=== PATIENT | male | born 1935 | race Caucasian/White ===

== ENCOUNTER 2016-08-24 18:01 | Inpatient (IN) ==
[2016-08-24] MEDS ORDERED: D50W SYRINGE ONE (18:10)
[2016-08-24 18:36] LABS: MANUAL DIFF NEEDED? NO
[2016-08-24 18:49] LABS: INR 1.17; PROTIME 12.4 Seconds (9.2-11.7); PTT 28.9 Seconds (22.0-36.0)
[2016-08-24 18:50] LABS: BASO% 0.1 % (0.0-0.8); EOS# 0.08 X1000 (0.0-0.7); EOS% 0.8 % (0.0-10.0); HEMATOCRIT 28.2 % (42.0-52.0); HEMOGLOBIN 8.9 g/dL (14.0-18.0); IMM GRAN# 0.06 X1000 (0.0-0.04); IMM GRAN% 0.6 % (0.0-0.5); LYMPH# 0.86 X1000 (1.2-3.4); LYMPH% 8.9 % (20.5-51.1); MCH 30.9 PG (27-31); MCHC 31.6 g/dL (33-37); MCV 97.9 FL (81-99); MONO# 0.62 X1000 (0.11-0.59); MONO% 6.4 % (1.7-9.3); MPV 9.4 FL (7.4-10.4); NEUT% 83.2 % (42.2-75.2); PLT 156 X1000 (130-400); RBC 2.88 XMIL (4.7-6.1)
[2016-08-24 19:11] LABS: ALBUMIN 2.5 g/dL (3.5-5.0); POTASSIUM 4.2 mmol/L (3.5-5.1); TOTAL BILIRUBIN 0.57 mg/dL (0.20-1.00); TOTAL PROTEIN 5.9 g/dL (6.3-8.3)
--- NOTE | 2016-08-24 19:12 | Diag Imaging Result Document ---
PROCEDURE NAME: CHEST-2 VIEWS - 08/24/2016 AP AND LATERAL CHEST: There are fibrotic changes in the medial right upper lobe and apical pleural thickening, more so on the right than the left, both of which were present on 03/15/2013 and probably related to previous granulomatous disease. There is atelectasis or fibrosis in the right base which was also present on 08/08/2016 but not on the previous study of 03/15/2013. IMPRESSION: Right lower lobe atelectasis.
[2016-08-24 19:24] LABS: ALLEN TEST YES; BE -3.8 mmoll (-3.0-3.0); BLOOD TYPE ARTERIAL; DRAW SITE R RADIAL; METHB 1.9 % (0.0-1.5); MODALITY CANNULA; O2(CT) 11.6 mL/dL (15.0-23.0); PCO2(98.6) 30 mmHg (35-45); PO2(98.6) 139 mmHg (60-100); SAMPLE BLOOD; SAO2 100.3 % (95.0-100.0); THB 8.3 g/dL (11.5-17.4); pH(98.6) 7.43 (7.35-7.45)
[2016-08-24 19:33] LABS: CALCIUM 6.3 mg/dL (8.8-10.2)
[2016-08-24] MEDS ORDERED: LASIX IV ONE (19:34)
--- NOTE | 2016-08-24 19:35 | Diag Imaging Result Document ---
PROCEDURE NAME: ABDOMEN FLAT/UPRIGHT - 08/24/2016 FLAT AND UPRIGHT ABDOMEN: FINDINGS: There is some small bowel gas as well as gas and stool in the colon. There is a curvilinear rounded density on the right about the level of the iliac crest. This is not the gallbladder as there has apparently been cholecystectomy, but may be represent a cyst in the right kidney as was demonstrated on ultrasonography on 08/03/2016. The dominguez are partially calcified. IMPRESSION: Nonspecific abdomen. Partially calcified right renal cysts.
[2016-08-24 20:04] LABS: URINE SOURCE CLEAN CATCH
[2016-08-24 20:09] LABS: BILIRUBIN URINE NEGATIVE (NEGATIVE); BLOOD URINE NEGATIVE (NEGATIVE); COLOR YELLOW; GLUCOSE URINE NEGATIVE (NEGATIVE); LEUKOCYTES URINE SMALL (NEGATIVE); NITRITE URINE NEGATIVE (NEGATIVE); PROTEIN URINE TRACE mg/dL (NEGATIVE); SP GRAVITY URINE 1.012; TURBIDITY URINE CLEAR (CLEAR); UROBILINOGEN URINE NORMAL (NORMAL)
[2016-08-24 20:10] LABS: URINE MICRO REVIEW NEEDED? YES
[2016-08-24 20:21] LABS: UR EPITHELIAL CELLS <10 /HPF (<10); URINE BACTERIA NEGATIVE /HPF; URINE CULTURE NEEDED? YES; URINE RBC <10 /HPF (<10); URINE WBC <10 /HPF (<10)
[2016-08-24 20:24] LABS: URINE CASTS NONE SEEN; URINE CRYSTALS NONE SEEN; URINE SMALL ROUND CELLS NONE SEEN
[2016-08-24] MEDS ORDERED: SOLU-MEDROL IV ONE (21:57)
[2016-08-24] MEDS ORDERED: ZOFRAN IV PRN (22:15)
[2016-08-24] MEDS ORDERED: XANAX PO PRN (22:15)
[2016-08-24] MEDS: DUONEB (A & A) INH SCH (23:03)
[2016-08-24] MEDS ORDERED: VANCOMYCIN IV PER PHARMACY MISC SCH (23:15)
[2016-08-24 23:49] LABS: HEMOGLOBIN A1C 5.7 % (4.8-6.0)
--- NOTE | 2016-08-24 23:55 | Diag Imaging Result Document ---
PROCEDURE NAME: LUMBAR SPINE 2-VIEWS - 08/24/2016 LUMBAR SPINE AP AND LATERAL: FINDINGS: There is no evidence of acute fracture or subluxation. There is bridging osteophyte formation at T12-L1 and L1-2. The disk spaces are otherwise fairly well maintained. There is dense calcification of the abdominal aorta which does not appear to be distended. IMPRESSION: 1. No evidence of acute bony disease. 2. Degenerative disk disease as described.
[2016-08-25] LABS: URIC ACID 7.6 mg/dL (3.4-7.0)
[2016-08-25] MEDS ORDERED: MAGNESIUM SULFATE 2 GM/S.W.I. 2 GM/50 ML IVPB IV ONE (01:00)
[2016-08-25] MEDS ORDERED: D50W SYRINGE IV PRN (03:00)
[2016-08-25] MEDS ORDERED: D50W SYRINGE ONE (03:34)
[2016-08-25] MEDS: DUONEB (A & A) INH SCH ×5 (03:50→21:10)
[2016-08-25] MEDS: HUMALOG SUBQ SCH ×3 (07:00→16:00)
[2016-08-25] MEDS ORDERED: LASIX IV SCH (09:00)
[2016-08-25] MEDS: PREDNISONE PO SCH (09:25)
[2016-08-25] MEDS: KLOR-CON PO SCH (09:25)
[2016-08-25] MEDS: NORVASC PO SCH (09:25)
[2016-08-25] MEDS: HEPARIN SUBQ SCH ×2 (09:25→23:07)
[2016-08-25] MEDS: FOLIC ACID PO SCH (09:25)
[2016-08-25] MEDS: COREG PO SCH ×2 (09:25→20:45)
[2016-08-25] MEDS: OSCAL 500 + D PO SCH ×3 (09:25→17:11)
--- NOTE | 2016-08-25 10:06 | PROGRESS NOTE ---
DATE: 08/25/2016 SUBJECTIVE: The patient says he is feeling better now. His blood sugar this morning was 109. OBJECTIVE: Please see vital signs in chart. They are stable. HEENT: Normocephalic. EOMs intact. PERRLA. Throat clear. Lungs are clear to auscultation and percussion without rhonchi, rales, or wheezes. Heart: Regular rate and rhythm without murmurs, gallops, or friction rubs. Abdomen soft with active bowel sounds. No organomegaly or tenderness. Neurologic: Cranial nerves 2-12 intact grossly. Sensory and motor intact. Reflexes 1+ all. The patient came in with some respiratory distress and a blood sugar of 33. He seems to be breathing fine now. Blood gases on 28% FiO2 were adequate. He did have a critical value of magnesium of 0.7 and was given Mag sulfate. Calcium has been low even recently before this admission due to his low albumin. ASSESSMENT: 1. Respiratory distress. 2. Hypoglycemia. 3. Diabetes mellitus. 4. Hypomagnesemia. PLAN: Will measure electrolytes again in the morning. We will get a chest x-ray today. Overall, the patient seems to be doing better. cc: Ghassan Morton Jr, MD
--- NOTE | 2016-08-25 10:06 | HISTORY AND PHYSICAL ---
REASON FOR ADMISSION: One-week history of lower extremity weakness and 1-day history of shortness of breath. HISTORY OF PRESENT ILLNESS: Mr. Ramakrishna Dominguez is 81-year-old man with past medical history of chronic kidney disease, hypertension, gout, BPH, type 2 diabetes. The patient comes in today for 1-week history of lower extremity weakness and having a hard time getting out of bed without assistance. Unable to bear weight on his legs. He needed assistance to keep standing. He is currently under the care of hospice. His brings him in because over the last 1 week he has been pretty much bedbound. Except for when he needs to use the bedside commode. However today the patient said he developed sudden shortness of breath without any chest pain. He denies any pain anywhere at all. No dysuria and no abdominal discomfort, no musculoskeletal pain. He complains of PND and orthopnea today. No cough, no fever, no chills. He has chronic lower extremity leg swelling but he says it has not gotten any worse. REVIEW OF SYSTEMS: He denies any back pain. He does have functional incontinence being that he can control his bowels or bladder but he is unable to make it to the bathroom before he has accidents. He also today was brought in because his blood sugars have been running in the 30s the last 3 days and has been little confused. His has given insulin for the last few days and had to stop this and glimepiride. At home his blood sugar was 32 and EMS gave him only 25 g of D50, blood sugar has come to 200. ALLERGIES: Patient is allergic to codeine. MEDICATIONS: He is currently on meclizine 25 mg 4 times a day, Xanax 0.25 mg b.i.d., Coreg 25 mg b.i.d., fluoxetine 20 mg b.i.d. glyburide 6 mg b.i.d., hydrochlorothiazide 12.5 mg q.a.m., Pravachol 80 mg at bedtime, Triplex 135 mg daily, Norvasc 5 mg daily, 25 mg daily, Lasix 40 mg daily, Singulair 10 mg at bedtime, potassium chloride 20 mEq daily, albuterol inhaler q.4 p.r.n., Symbicort 2 puffs b.i.d., folic acid 1 mg daily. FAMILY HISTORY: Reviewed by me. Unchanged per my last H and P done on 2016. SURGICAL HISTORY: Reviewed, unchanged from his last admission a few weeks ago. SOCIAL HISTORY: He is . Does not smoke, drink or use illicit drugs. LAB WORK: Chest film shows atelectasis and some fibrosis but no infiltrate or pulmonary edema. His white count 20,000, hemoglobin and hematocrit is 9 and 28, platelets 456, 000. His glucose on arrival was 64, repeat is now 123 and a calcium of 6.3, albumin 2.5, corrected will be 7.5 corrected calcium. Troponin 0.76, CK 68, PT, PTT is normal. Alcohol level is normal. Urinalysis is unremarkable, pH 7.43, pCO2 30, PO2 39 on 2 L. Abdominal x-ray is nonspecific bowel pattern. Also forgot to mention patient complains of swelling of his 3rd right digit which he thinks is gout. EXAMINATION: General: Chronically ill, pallid elderly man who is alert and oriented to person, place, and time with normal mood and affect. HEENT: Head is normocephalic, atraumatic. Eyes PRADIP, EOMI. He is anicteric and pale. Vital signs: His blood pressure is 169/74, heart rate is 98, respirations 26. He has diffuse tremors of extremities mainly intentional in nature. He also has a some mild myoclonus. ENT was grossly normal exam . He has no signs of sinusitis. Neck: Supple. No JVD or carotid bruit. No thyromegaly. Lungs: Patient has bibasilar crepitations and scattered wheezes in lungs. Air entry decreased in both lung alexander. Cardiovascular: First, 2nd heart sounds heard. No gallops, murmurs, rubs. Rhythm is regular. Abdomen: Protuberant, soft, nontender. No mass, megaly, bowel sounds are hypoactive. Rectal: Deferred at this time. Extremities: The patient has 2+ pitting edema in his lower extremities. Pulses distally in lower extremities are diminished but symmetrical compared to the distal pulses in his upper extremities. Of note patient does have swelling and redness of his 3rd right digit nd is slightly warm to touch and tender somewhat consistent tophaceous gout. Neurological: No focal deficits. Skin: See above, otherwise unremarkable. Musculoskeletal: See above, otherwise normal. ASSESSMENT: 1. Acute dyspnea, could be due to very mild early vascular congestion versus chronic obstructive pulmonary disease versus deconditioning from chronic kidney disease. 2. Chronic kidney disease stage 4. 3. Hypocalcemia probably related to underlying kidney disease. 4. Acute gouty flare up. 5. Hypertensive kidney disease. 6. Type 2 diabetes complicated with hypoglycemia. 7. Hypoglycemia secondary to poor clearance of insulin and sulfonylureas. 8. Essential tremor. 9. Anemia related to chronic kidney disease. 10. Hyperlipidemia. 11. Folic acid deficiency. PLAN: Patient will be admitted and cautiously diuresed, given nebulizer treatments. Primary goal of this is to treat patient symptomatically. The patient is a hospice patient and his prognosis long-term is not particularly good. His weakness could be a combination of the underlying anemia from his chronic kidney disease, the hypocalcemia that he is experiencing. We will correct hypocalcemia with calcium and vitamin D. Patient does have elevated uric acid from the last visit and this of course is gouty flare up. Recommend consider starting him on allopurinol to be determined by Dr. Morton. In the meantime for the acute flare up will be given IV steroids today and continue with moderate doses of prednisone 20 mg daily at the discretion of the physician seeing him tomorrow. The patient does exhibit signs of essential tremor, is already on beta blockers and Xanax, Coumadin may be considered. The patient will discontinue Lantus and glyburide because of patient's hypoglycemia and start him on a very conservative sliding scale. His blood sugar drops less than 100 we will treat her aggressively with D50 as I still believe he probably has circulating levels of insulin secondary to glyburide and Lantus will still persist. Hopefully in the next couple of days patient can be discharged. I do think he may benefit from physical therapy if deemed necessary by Dr. Morton. DVT prophylaxis with heparin. Follow hemoglobin and hematocrit closely to ensure that he does not have any bleeding problems emanating from DVT prophylaxis. [facility]
[2016-08-25] MEDS: SYMBICORT 160/4.5 MICROGM INHALER INH SCH ×2 (10:10→21:10)
--- NOTE | 2016-08-25 15:40 | Diag Imaging Result Document ---
PROCEDURE NAME: CHEST-2 VIEWS - 08/25/2016 TWO VIEWS OF THE CHEST: FINDINGS: There is atelectatic change in both lung bases. The inspiration is suboptimal. There are no previous studies available for comparison at this time. IMPRESSION: Poor inspiration and bibasilar atelectasis.
[2016-08-25 16:30] LABS: ALLEN TEST YES; BE -3.3 mmoll (-3.0-3.0); BLOOD TYPE ARTERIAL; DRAW SITE R RADIAL; METHB 2.2 % (0.0-1.5); O2(CT) 11.2 mL/dL (15.0-23.0); PCO2(98.6) 33 mmHg (35-45); PO2(98.6) 117 mmHg (60-100); SAMPLE BLOOD; SAO2 99.8 % (95.0-100.0); THB 8.1 g/dL (11.5-17.4); pH(98.6) 7.41 (7.35-7.45)
[2016-08-25 18:13] LABS: MODALITY CANNULA
[2016-08-25 18:49] LABS: AGAP 17; BUN 25 mg/dL (8-22); CHLORIDE 105 mmol/L (98-107); COSMO 287; POTASSIUM 4.3 mmol/L (3.5-5.1); SODIUM 141 mmol/L (136-145); TCO2 19 mmol/L (25-35)
[2016-08-25 18:52] LABS: I-STAT IONIZED CALCIUM 0.94 mmoll (1.12-1.32)
[2016-08-25 18:55] LABS: BASO% 0.1 % (0.0-0.8); EOS# 0.01 X1000 (0.0-0.7); EOS% 0.1 % (0.0-10.0); HEMATOCRIT 29.2 % (42.0-52.0); HEMOGLOBIN 9.1 g/dL (14.0-18.0); IMM GRAN# 0.06 X1000 (0.0-0.04); IMM GRAN% 0.7 % (0.0-0.5); LYMPH# 0.71 X1000 (1.2-3.4); LYMPH% 8.2 % (20.5-51.1); MANUAL DIFF NEEDED? YES; MCH 30.3 PG (27-31); MCHC 31.2 g/dL (33-37); MCV 97.3 FL (81-99); MONO# 0.33 X1000 (0.11-0.59); MONO% 3.8 % (1.7-9.3); MPV 9.4 FL (7.4-10.4); NEUT% 87.1 % (42.2-75.2); PLT 152 X1000 (130-400)
[2016-08-25 18:57] LABS: BANDS 13 % (0-1); LYMPHS 14 % (21-51); MONO 5 % (1-9)
[2016-08-25 19:31] LABS: CALCIUM 6.6 mg/dL (8.8-10.2)
[2016-08-25 19:37] LABS: MAGNESIUM 0.7 mg/dL (1.5-2.7)
[2016-08-25] MEDS: PRAVACHOL PO SCH (20:45)
[2016-08-26] MEDS: HUMALOG SUBQ SCH ×6 (00:57→22:21)
[2016-08-26] MEDS: DUONEB (A & A) INH SCH ×4 (03:08→20:00)
[2016-08-26 07:54] LABS: MANUAL DIFF NEEDED? NO
[2016-08-26 08:02] LABS: BASO% 0.1 % (0.0-0.8); EOS# 0.08 X1000 (0.0-0.7); HEMATOCRIT 26.4 % (42.0-52.0); HEMOGLOBIN 8.3 g/dL (14.0-18.0); IMM GRAN# 0.04 X1000 (0.0-0.04); IMM GRAN% 0.5 % (0.0-0.5); LYMPH# 1.29 X1000 (1.2-3.4); LYMPH% 16.9 % (20.5-51.1); MCH 30.5 PG (27-31); MCHC 31.4 g/dL (33-37); MCV 97.1 FL (81-99); MONO# 0.39 X1000 (0.11-0.59); MONO% 5.1 % (1.7-9.3); MPV 9.5 FL (7.4-10.4); NEUT% 76.4 % (42.2-75.2); PLT 150 X1000 (130-400); RBC 2.72 XMIL (4.7-6.1)
[2016-08-26 08:38] LABS: ALBUMIN 2.4 g/dL (3.5-5.0); CALCIUM 6.8 mg/dL (8.8-10.2); MAGNESIUM 0.9 mg/dL (1.5-2.7); POTASSIUM 4.4 mmol/L (3.5-5.1); TOTAL BILIRUBIN 0.45 mg/dL (0.20-1.00); TOTAL PROTEIN 5.8 g/dL (6.3-8.3)
[2016-08-26] MEDS: HEPARIN SUBQ SCH ×2 (09:42→20:52)
[2016-08-26] MEDS: KLOR-CON PO SCH (09:43)
[2016-08-26] MEDS: COREG PO SCH ×2 (09:43→20:53)
[2016-08-26] MEDS: OSCAL 500 + D PO SCH ×3 (09:43→20:53)
[2016-08-26] MEDS: LASIX PO SCH (09:43)
[2016-08-26] MEDS: NORVASC PO SCH (09:43)
[2016-08-26] MEDS: PREDNISONE PO SCH (09:43)
[2016-08-26] MEDS: FOLIC ACID PO SCH (09:43)
[2016-08-26] MEDS ORDERED: MAGNESIUM SULFATE 4 GM/S.W.I. 4 GM/100 ML IVPB IV ONE (09:58)
[2016-08-26] MEDS ORDERED: ALBUMIN 25% IV ONE (09:59)
[2016-08-26 10:52] LABS: IRON SATURATION 38 %; TIBC 160 ug/dL; TOTAL IRON 61 ug/dL (53-167); UNBOUND IRON 99 ug/dL (112-346)
[2016-08-26] MEDS: SYMBICORT 160/4.5 MICROGM INHALER INH SCH ×3 (10:55→21:41)
[2016-08-26 11:29] LABS: FERRITIN 559 ng/mL (30-400)
--- NOTE | 2016-08-26 11:41 | PROGRESS NOTE ---
DATE: 08/26/2016 SUBJECTIVE: The patient says he is feeling a little bit better. OBJECTIVE: Vital Signs: Blood pressure 118/54, respirations 14, pulse 82, temperature 98.5 degrees Fahrenheit. HEENT: Normocephalic. EOMs intact. PERRLA. Throat clear. Lungs: Clear to auscultation and percussion without rhonchi, rales, or wheezes. Heart: Regular rate and rhythm without murmurs, gallops, or friction rubs. Abdomen: Soft with active bowel sounds. No organomegaly or tenderness. Neurological: Intact grossly. ASSESSMENT: 1. Patient came in with some respiratory distress. His proBNP is over 11,000. We will evaluate for congestive heart failure . 2. Adult-onset diabetes mellitus. 3. Hypoglycemia. 4. Hypomagnesium now with magnesium of magnesium of 0.9. 5. Renal failure. 6. Hypoalbuminemia. 7. Hypocalcemia. PLAN: We will consult Cardiology. We will get an echocardiogram. We will try to replace albumin and try to replace magnesium. Please see orders. We will get an echocardiogram. cc: Ghassan Morton Jr, MD
--- NOTE | 2016-08-26 14:46 | Diag Imaging Result Document ---
PROCEDURE NAME: US ABDOMEN-COMPLETE - 08/26/2016 ULTRASOUND ABDOMEN: FINDINGS: The exam is technically limited due to artifacts from the patient's body habitus, inability of the patient to hold his breath during image acquisition, and limited mobility of the patient. There is no discrete liver abnormality identified. The spleen is borderline prominent, measuring approximately 13.5 cm in length by 4.6 cm in diameter. The gallbladder is surgically absent. The common bile duct is normal caliber at 5 mm. There is no ascites seen. The right kidney measures 13.8 x 5 x 8.7 cm in size. The left kidney measures 11.6 x 7.1 x 7.4 cm. There are bilateral renal cysts measuring up to 5.1 cm on the right and 5.2 cm on the left. There is no solid renal mass or hydronephrosis identified. Visualized portions of the pancreas are unremarkable, but the pancreas is partially obscured by bowel gas artifacts. Visualized portions of the abdominal aorta and IVC appear normal caliber, but these are largely obscured by artifacts from bowel gas. IMPRESSION: 1. No visible liver lesion. Borderline splenomegaly. 2. Status post cholecystectomy. Normal caliber common bile duct at 5 mm. No evidence of ascites. 3. Bilateral renal cysts.
--- NOTE | 2016-08-26 15:07 | Diag Imaging Result Document ---
PROCEDURE NAME: CT THORAX W/O CONTRAST - 08/26/2016 CT THORAX WITHOUT CONTRAST: FINDINGS: No contrast administered per request of the referring provider. A dose reduction protocol was used. No comparison CT thorax is available. There is scarring with possible mild bronchiectasis at the suprahilar right upper lobe extending to the apex. There is a small right pleural effusion. There is some dependent atelectasis adjacent to the right pleural effusion in the right lower lobe. There is mild peripheral scarring at the lateral mid and lower left thorax. There is no discrete consolidation identified. There is no pneumothorax seen. There is no discrete pulmonary mass lesion identified. There are a few mildly prominent mediastinal lymph nodes. Included sections of upper abdomen show an approximately 2.5 cm fluid density area at the pancreatic head. There are lesions in the visualized portions of the bilateral kidneys which may represent a combination of simple and complicated cysts. There are some borderline upper abdominal retroperitoneal lymph nodes. IMPRESSION: 1. Scarring with possible mild bronchiectasis at suprahilar right upper lobe/ apex. 2. Small right pleural effusion. No evidence of pneumonia. Borderline mediastinal lymph nodes. 3. Possible 2.5 cm cystic lesion in the head of the pancreas. Scattered borderline upper abdominal retroperitoneal lymph nodes. Bilateral renal lesions which may represent a combination of simple and complicated cysts. [facility]
--- NOTE | 2016-08-26 16:26 | CONSULTATION ---
DATE OF CONSULTATION: 08/26/2016 REQUESTING PHYSICIAN: Dr. Morton REASON FOR CONSULTATION: Evaluation for possible congestive heart failure, swelling, edema, shortness of breath. HISTORY OF PRESENT ILLNESS: Mr. Dominguez is an 81 year old who presented to the hospital for admission on 08/24/2016. At that time, he reported a 1-week history of increasing dyspnea associated with swelling of the lower extremities and profound weakness. He was not able to really get up. At the time of initial encounter, they found a BUN of 24, creatinine 2.5, calcium was low at 6.3, his albumin was 2.5. A troponin was negative. A ProBNP was 11, 617. They also checked a magnesium level, and it was found to be low at 0.7 and subsequently 0.9. An EKG was done in the emergency room. Unfortunately the tracing is lost, and I do not have anything at hand. However, his monitor technician indicated sinus rhythm. A chest x-ray showed possible bilateral atelectasis. There was apical pleural thickening. The patient has been admitted for management. He has been put on Lasix. He was also found to be hypoglycemic, I believe. Initially his sugar was 84; however, there has been some mention at some point that his sugar was 64. He denies having any chest pain or syncope. He admits to a history of vertigo in the past. PAST MEDICAL HISTORY: Positive for hypertension for a number of years. He does have a history of diabetes mellitus type 2 also for a number of years. He has had gout, and presently he is having some discomfort at the level of the ankles. The patient admits to a history of kidney insufficiency. In fact, his estimated glomerular filtration rate at this time is 19 mL per minute, consistent with stage 4 chronic kidney disease. PAST SURGICAL HISTORY: Positive for cholecystectomy in the past. ALLERGIES: Codeine. SOCIAL HISTORY: He is retired since 1992. He has been to his for 35 years. They do not have children. He is not a smoker nor a drinker. HOME MEDICATIONS: At the time of this admission included terbinafine 250 mg daily, potassium chloride 20 mEq daily, pravastatin 80 mg daily, montelukast 10 mg at bedtime, meclizine 25 four times a day, hydrochlorothiazide 12.5 daily, glyburide 6 mg twice a day, furosemide 40 daily, folic acid 1 mg daily, fluoxetine 20 mg twice a day, fenofibrate acid 135 daily , carvedilol 25 twice a day, Symbicort 2 puffs twice a day, amlodipine 5 mg daily, alprazolam 0.25 mg twice a day, albuterol 2 puffs every 4 hours. REVIEW OF SYSTEMS: The patient has been gradually getting weaker. He has also noted progressive swelling of the legs. He has not had any pain of any kind. The patient was recently admitted to the hospital between 08/02/2016 and 08/14/2016. At that time, his discharge diagnoses were possibly for renal failure, acute on chronic, hypotension and anemia. He has also been admitted to the hospital in the past, twice, from 08/27/2013 and 08/28/2013 and then 10/2013 to 09/02/2013 for hyperglycemia and dehydration. His appetite has been poor. He does not sleep very well. PHYSICAL EXAMINATION: Today, blood pressure is 118/54, temperature 98.5, pulse 76, respirations 16. The patient is awake, alert and oriented, in no distress. HEENT is unremarkable. Chest shows diminished breath sounds at the bases. Heart sounds are regular and rhythmic. I do not hear a gallop or murmur. Abdomen is nontender, soft. No masses, no hepatomegaly. Extremities showed 2+ edema. Pulses are palpable. His ankles are tender, they are warm. Neurologic: He has shakiness. He moves all 4 extremities, follows commands. He is awake, alert and oriented x3. IMPRESSION: 1. The patient is presenting with increasing dyspnea and swelling. This may represent congestive heart failure, either systolic or diastolic or a combination of both. 2. History of diabetes mellitus type 2 with edema and low albumin. This may represent nephrotic syndrome secondary to diabetic nephropathy. 3. History of hypertension. 4. Poor functional status. 5. severe hypomagnesemia. 6. Chronic kidney disease stage IV.Calculated GFR given age,weight and creatinine level is 27 ml/min. RECOMMENDATIONS: I would suggest to obtain a number of tests including the echocardiogram that has already been requested. I would suggest to get an ultrasound of the abdomen. I would suggest to get a CT of the chest. I would like to collect 24-hour urine for creatinine clearance and protein. The patient seems to have some gout. We might want to give him some colchicine. The patient also has significant low magnesium. Dr. Morton is going to replace that. Further advice will be forthcoming. I believe we should contact Dr. Woodard since the most likely diagnosis on him is progressive renal insufficiency with a component of nephrotic syndrome. cc: MD Ghassan Bo Jr, MD MTDD
[2016-08-26] MEDS: PRAVACHOL PO SCH (20:53)
[2016-08-27] MEDS: DUONEB (A & A) INH SCH ×5 (02:59→20:01)
--- NOTE | 2016-08-27 05:58 | EKG Report ---
Test Performed on : 08/26/2016 6:05:23 PM Test Reason : AMS Blood Pressure : / mmHG Vent. Rate : 083 BPM Atrial Rate : 083 BPM P-R Int : 188 ms QRS Dur : 086 ms QT Int : 390 ms P-R-T Axes : 061 039 050 degrees QTc Int : 458 ms Normal sinus rhythm. Normal ECG When compared with ECG of 02-AUG-2016 19:21, Artifact is much less ST no longer depressed in Lateral leads Confirmed by Ashlyn CATHERINE, Caesar Liu ([id number]) on 08/29/2016 5:20:39 PM
[2016-08-27] MEDS: HUMALOG SUBQ SCH ×4 (06:06→22:57)
[2016-08-27 07:51] LABS: ALBUMIN 2.7 g/dL (3.5-5.0); CALCIUM 7.7 mg/dL (8.8-10.2); MAGNESIUM 1.7 mg/dL (1.5-2.7); TOTAL BILIRUBIN 0.5 mg/dL (0.20-1.00); TOTAL PROTEIN 5.7 g/dL (6.3-8.3)
[2016-08-27] MEDS ORDERED: ALBUMIN 25% IV ONE (08:41)
[2016-08-27] MEDS ORDERED: EPOGEN SUBQ ONE (09:09)
[2016-08-27] MEDS: HEPARIN SUBQ SCH ×2 (09:24→20:58)
[2016-08-27] MEDS: PREDNISONE PO SCH (09:25)
[2016-08-27] MEDS: COREG PO SCH ×2 (09:25→20:57)
[2016-08-27] MEDS: PROZAC PO SCH ×2 (09:25→20:57)
[2016-08-27] MEDS: FOLIC ACID PO SCH (09:25)
[2016-08-27] MEDS: NORVASC PO SCH (09:26)
[2016-08-27] MEDS: KLOR-CON PO SCH (09:26)
[2016-08-27] MEDS: LASIX PO SCH (09:26)
[2016-08-27] MEDS: OSCAL 500 + D PO SCH ×3 (09:27→16:26)
--- NOTE | 2016-08-27 09:31 | PROGRESS NOTE ---
DATE: 08/27/2016 SUBJECTIVE: The patient is feeling better. OBJECTIVE: Vital signs show a blood pressure of 133/58, respirations 14, pulse 75, temperature 97.9 degrees Fahrenheit. Weight is 218 pounds and 8 ounces. HEENT is normocephalic. EOMs intact. PERRLA. Throat clear. Lungs are clear to auscultation and percussion without rhonchi, rales, or wheezes at this time. Heart has regular rate and rhythm without murmurs, gallops, or friction rubs. Abdomen soft with active bowel sounds. No organomegaly or tenderness. Neurologic exam intact grossly. I appreciate Dr. Herring's input. Urine culture came back showing Enterobacter cloacae but only 60,000-70,000 colony counts. He is having no symptoms with this, but for coverage, I will place him on Macrobid [address] scan of the chest showed bronchiectasis. I will get pulmonary function tests. Ultrasound of the abdomen showed renal cyst that have been there previously and a 2.5 cm cyst in the head of the pancreas. Cysts are usually benign. No solid masses were seen. The patient's anemia seems to be anemia of chronic renal failure. ASSESSMENT: 1. Respiratory distress. 2. Hypoglycemia. 3. Possible congestive heart failure. Echocardiogram pending. 4. Anemia of renal disease. 5. Urinary tract infection. 6. Bronchiectasis. 7. Renal cysts. 8. Cystic lesion in the pancreas. 9. Adult-onset diabetes mellitus. PLAN: We will continue to workup. Please see orders above. We will consult Nephrology. cc: Ghassan Morton Jr, MD
[2016-08-27] MEDS: SYMBICORT 160/4.5 MICROGM INHALER INH SCH ×2 (09:51→20:01)
[2016-08-27] MEDS: MACROBID PO SCH ×2 (10:07→20:57)
--- NOTE | 2016-08-27 12:20 | CONSULTATION ---
DATE OF CONSULTATION: 08/27/2016 REASON FOR CONSULTATION: Chronic kidney disease. HISTORY OF PRESENT ILLNESS: Mr. Dominguez is an 81-year-old white male, who was recently hospitalized here. He was discharged on 08/14/2016 and, at that time, his kidney function was at 3.0. His creatinine was 7.1 when he was admitted to the hospital back on 08/02/2016. the night. He states that he had to come back to the hospital because of nausea and vomiting. He also had some difficulty with breathing. Because of his worsening symptoms, he came to the hospital. No cough, sputum, chills, or fevers. Modest lower extremity swelling that is unchanged from baseline. PAST MEDICAL HISTORY: Diabetes, chronic kidney disease, hypertension, gout, BPH. ALLERGIES: Codeine. HOME MEDICATIONS: Meclizine, Xanax, carvedilol, fluoxetine, glyburide, hydrochlorothiazide, Pravachol, triplex, Norvasc, furosemide, Singulair, potassium chloride, albuterol, Symbicort, folate. SOCIAL HISTORY: He is and lives with his who is in attendance today. No current alcohol or tobacco. FAMILY HISTORY: Noncontributory. PHYSICAL EXAMINATION: Vital Signs: Blood pressure 133/58, heart rate 75, respirations 14, afebrile. Generally, he is an elderly man, sitting at 45 degrees in no acute distress. Skin is warm and dry. Conjunctivae are pink. Pupils are equal. Neck veins are not distended. Trachea is midline. Heart is regular without rubs or gallops. Lungs have equal breath sounds. No crackles or wheezes. Abdomen soft, nontender. Bowel sounds present. No organomegaly or masses or bruits. Extremities have 1+ edema. No clubbing or cyanosis. Neurologic exam is grossly nonfocal. LABORATORY DATA: Sodium 142, potassium 4.0, chloride 105, bicarbonate 22. BUN 37, creatinine 2.6. Hemoglobin 8.3. IMPRESSION: 1. Chronic kidney disease. We will measure his creatinine clearance today to assess whether his symptoms are likely related to his renal failure. 2. Anemia: Iron studies are appropriate. We will dose with erythropoietin. Check stool Hemoccult. 3. Acid-base acceptable. 4. Electrolytes acceptable. cc: MD Ghassan Mims Jr, MD
[2016-08-27] MEDS: TYLENOL PO PRN (13:27)
--- NOTE | 2016-08-27 16:27 | ECHO REPORT ---
ORDER DATE: 08/26/2016 INTERPRETING PHYSICIAN: Dr. Herring REQUESTING PHYSICIAN: CLINICAL INDICATIONS: This is an 81-year-old male with CHF, chronic kidney disease, diabetes. M-MODE MEASUREMENTS: Right ventricle: 3.4 cm. Left ventricle end diastole: 5.5 cm. Left ventricle end systole: 3.4 cm. Posterior wall: 1.0 cm. Interventricular septum: 1.1 cm. Left atrium: 4.1 cm. Aortic root: 3.7 cm. SUMMARY OF 2-DIMENSIONAL IMAGIN. The left ventricular chamber appears to be moderately enlarged. The left ventricular systolic function is normal. Ejection fraction is estimated at 62%. No wall motion abnormality is noted. 2. Right ventricle is mild to moderately enlarged. 3. Tricuspid valve shows a mild degree of regurgitation. 4. The inferior vena cava is not dilated. 5. The pulmonary pressure is estimated at 37 mmHg which is borderline elevated. 6. Left atrium is probably at the upper limits of normal. 7. The pulmonic valve shows mild degree of regurgitation. 8. Aortic valve looks normal. Color flow mapping is unremarkable. There is no stenosis. No regurgitation. 9. Mitral valve looks normal. Color flow mapping indicates mild degree of regurgitation. 10.Pulse wave Doppler of mitral inflow is normal. 11.Tissue Doppler of septal and lateral mitral annulus averages 9 cm. 12.Pulse wave Doppler of pulmonary venous flow is normal. 13.There is no diastolic dysfunction. 14.There is no pericardial effusion, mass or thrombus. CONCLUSIONS: 1. Normal left ventricular systolic function with moderately enlarged left ventricle. 2. Normal diastolic function. 3. Borderline elevation of pulmonary pressure. 4. Very mild degree of mitral and tricuspid regurgitation. COMMENT: This study suggests that the peripheral edema that he has is probably related to some other organ failure besides the heart. This study does not support heart failure as the etiology of this patient's edema. cc: MD Ghassan Bo Jr, MD
[2016-08-27 16:51] LABS: UR CREATININE 35.1 mg/dL (14-26); UR PROTEIN 9.7 mg/dL
[2016-08-27 17:01] LABS: UR CREATININE TOTAL 886.3 mg/24 (800-1800)
[2016-08-27] MEDS: PRAVACHOL PO SCH (20:57)
[2016-08-28] MEDS: DUONEB (A & A) INH SCH ×4 (03:25→19:44)
[2016-08-28] MEDS: HUMALOG SUBQ SCH ×3 (06:28→16:51)
[2016-08-28 07:05] LABS: ALBUMIN 2.8 g/dL (3.5-5.0); CALCIUM 8.3 mg/dL (8.8-10.2); MAGNESIUM 1.5 mg/dL (1.5-2.7); POTASSIUM 4.3 mmol/L (3.5-5.1); TOTAL BILIRUBIN 0.58 mg/dL (0.20-1.00)
[2016-08-28] MEDS: TYLENOL PO PRN (07:32)
[2016-08-28] MEDS: COREG PO SCH ×2 (08:39→21:10)
[2016-08-28] MEDS: KLOR-CON PO SCH (08:39)
[2016-08-28] MEDS: MACROBID PO SCH ×2 (08:39→21:10)
[2016-08-28] MEDS: PREDNISONE PO SCH (08:39)
[2016-08-28] MEDS: OSCAL 500 + D PO SCH ×3 (08:39→17:39)
[2016-08-28] MEDS: FOLIC ACID PO SCH (08:39)
[2016-08-28] MEDS: PROZAC PO SCH ×2 (08:39→21:10)
[2016-08-28] MEDS: LASIX PO SCH (08:39)
[2016-08-28] MEDS: HEPARIN SUBQ SCH ×3 (08:40→21:11)
[2016-08-28] MEDS: NORVASC PO SCH (08:43)
--- NOTE | 2016-08-28 09:30 | PROGRESS NOTE ---
DATE: 08/28/2016 SUBJECTIVE: The patient feels a little bit stronger. He did stand up a little bit by his bedside yesterday but did not walk. We will have physical therapy work with him again today. His breathing is a little better but he is still requiring oxygen. He did have oxygen at home. His echocardiogram was essentially normal. At least it did not show anything which would be consistent with congestive heart failure. OBJECTIVE: Vital Signs: Blood pressure 128/56, respirations 22, pulse 73, temperature 98 degrees Fahrenheit. HEENT: Normocephalic. EOMs intact. PERRLA. Throat clear. Lungs: Clear to auscultation and percussion without rhonchi, rales, or wheezes. Heart: Regular rate and rhythm without murmurs, gallops, or friction rubs. Abdomen: Soft with active bowel sounds. No organomegaly or tenderness. Neurological: Examination intact grossly. The patient does look deconditioned. Laboratory Data: White count 7620, hemoglobin is 8.3, hematocrit 26.4. The patient received some erythropoietin from Dr. Woodard. Note that hemoglobin and hematocrit were done on 08/26/2016. Today's lab did show a slight improvement of creatinine down to 2.4 with a BUN of 37. Electrolytes within normal limits. Calcium is better at 8. Albumin is a little better at 2.8. Creatinine clearance is only 23. ASSESSMENT: 1. Respiratory distress, resolved. 2. Hypoglycemia, resolved. 3. Consideration for congestive heart failure because of an elevated proBNP. Does not seem to indicate that on echocardiogram. Possibly proBNP was elevated just because of the kidney failure. 4. Anemia of renal disease. Have checked for iron levels and we will check stool for blood. 5. Urinary tract infection. 6. Bronchiectasis. 7. Renal cyst. 8. Cystic lesion in the head of the pancreas. 9. Adult onset diabetes mellitus. PLAN: We will see what he can do with physical therapy today, possibly home in the morning if he has increased his strength. cc: Ghassan Morton Jr, MD
--- NOTE | 2016-08-28 09:46 | PROGRESS NOTE ---
DATE: 08/28/2016 CHIEF COMPLAINT: An 81-year-old male with edema, shortness of breath. SUBJECTIVE: Mr. Dominguez is feeling somewhat better today. He is not having any chest pain. Breathing is more comfortable. He has trace edema. His weight today is 221 pounds. The creatinine clearance has been completed. The results indicate that his clearance is 23 mL/min. That places him in chronic kidney disease stage 4. His level of proteinuria is really low. OBJECTIVE: Vital signs: Blood pressure 128/56, temperature 98 degrees, pulse 73, respirations 22. General: He is awake, alert, oriented. He is pale. HEENT: No significant jugular venous distention. Chest: Diffusely diminished breath sounds especially in the right lung field. Cardiac: Heart sounds are regular and rhythmic. I do not hear any gallop or murmur. Abdomen: Nontender. There is no hepatomegaly. Extremities: Showed 1+ edema bilateral. Neurological: He moves 4 extremities. REVIEW OF STUDIES REQUESTED: 1. A CT of the chest without contrast showed scarring with possible mild bronchiectasis at suprahilar right upper lobe apex, small right pleural effusion, a cystic lesion in the head of the pancreas. 2. A 2-D echocardiogram showed excellent left ventricular systolic and diastolic function without any significant valvular abnormality. 3. The EKG done on August 26 showed sinus rhythm with no evidence of any significant ST-T abnormality. BLOOD WORK FROM TODAY: Sodium 142, potassium 4.3, BUN 37, creatinine 2.4 His magnesium had come down to 1.5. His calcium is 8.3. Phosphorus yesterday was 3.3. IMPRESSION: 1. Patient presenting with increasing edema. Based on the results that I have at hand, I do not believe that this is cardiac edema. His ejection fraction is normal. His diastolic function is normal. He does have stage 4 of chronic kidney disease, which I think explains his swelling. 2. He has a history of hypertension. 3. He has very poor functional status. RECOMMENDATION: From a cardiology viewpoint, I do not have any further suggestions. We discussed with Dr. Morton about the findings of positive urine culture. He has put the patient on Macrodantin or nitrofurantoin to cover for Enterobacter cloacae. The patient has been seen already by Dr. Woodard from Nephrology. We will sign off at this time, and please call me if further assistance is needed. The patient does not require any further cardiac testing. cc: MD Ghassan Bo Jr, MD
[2016-08-28] MEDS: SYMBICORT 160/4.5 MICROGM INHALER INH SCH ×2 (10:03→19:45)
[2016-08-28] MEDS ORDERED: CALMOSEPTINE OINTMENT TOP ONE (10:48)
--- NOTE | 2016-08-28 14:46 | PROGRESS NOTE ---
DATE: 08/28/2016 TIME SEEN: 0745 hours. SUBJECTIVE: Mr. Dominguez is resting quietly in bed. Head of the bed is elevated. He is eating his breakfast. He denies chest pain or increased work of breathing. OBJECTIVE: His most recent vital signs: Temperature 98 degrees, blood pressure 128/56, heart rate 73, respirations are 20. He is on 2 L nasal cannula. Last recorded saturation is 100%. He has had 520 in; he has had 675 out per void. LABS: Sodium 142, potassium 4.3, chloride 104, CO2 23, BUN 37, creatinine 2.4, glucose 96. His anion gap is 15. Calcium 8.3, magnesium 1.5, albumin is 2.8. Previous hemoglobin drawn on the second was 8.3. OBJECTIVE: General: On physical exam, this is an 81-year-old elderly white male. He is in no acute distress. Skin: Warm and dry. HEENT: Normocephalic, atraumatic. Conjunctivae pale. He has PRADIP. Mucous membranes moist. Neck: Supple. Trachea midline. Trace JVD. Cardiovascular: Regular rate and rhythm. He is without murmur or gallop. Lungs: Clear to auscultation anteriorly. Equal excursion. Abdomen: Soft, round, nontender. Positive bowel sounds. Genitourinary: Patient has been voiding adequate amount. Not inspected. Extremities: Have 1+ lower extremity edema. No clubbing or cyanosis. Neurological: Alert and oriented x2. ASSESSMENT AND PLAN: 1. Acute kidney injury on chronic kidney disease. Patient has a creatinine clearance from a 24- hour urine of 23%. He has 245 mg total proteinuria. We will continue to monitor his labs. His creatinine remains stable at his historical baseline after improvement. We have discussed with patient that it is okay from our perspective for him to be discharged; we can follow him as an outpatient basis when okayed by his primary care. 2. Electrolytes and acid-base balance. These remain stable. 3. Anemia. This remains low, but stable followed by primary care. No need for intervention at this time. I would like to thank you for allowing us to follow with this patient. Seen, data reviewed, discussed with Michelet Venegas on 08/28/16. I agree with the above assessment and plan of care. rg Dictated by NETTE Lima for Corey Woodard MD cc: NETTE Lima MD Roger H. Moss Jr, MD MTDD
[2016-08-28] MEDS: PRAVACHOL PO SCH (21:10)
[2016-08-29] MEDS: DUONEB (A & A) INH SCH ×2 (03:26→09:33)
[2016-08-29 07:28] LABS: MANUAL DIFF NEEDED? NO
[2016-08-29 07:56] LABS: EOS# 0.04 X1000 (0.0-0.7); EOS% 1.3 % (0.0-10.0); HEMATOCRIT 40.3 % (42.0-52.0); IMM GRAN# 0.05 X1000 (0.0-0.04); IMM GRAN% 1.6 % (0.0-0.5); LYMPH# 0.76 X1000 (1.2-3.4); LYMPH% 24.3 % (20.5-51.1); MCH 31.8 PG (27-31); MCHC 32.3 g/dL (33-37); MCV 98.5 FL (81-99); MONO% 3.2 % (1.7-9.3); NEUT% 68.6 % (42.2-75.2); PLT 93 X1000 (130-400); RBC 4.09 XMIL (4.7-6.1)
[2016-08-29 08:00] LABS: CALCIUM 8.5 mg/dL (8.8-10.2); POTASSIUM 4.4 mmol/L (3.5-5.1); TOTAL BILIRUBIN 0.54 mg/dL (0.20-1.00); TOTAL PROTEIN 5.9 g/dL (6.3-8.3)
[2016-08-29] MEDS: HUMALOG SUBQ SCH (08:16)
--- NOTE | 2016-08-29 08:17 | PROGRESS NOTE ---
DATE: 08/29/2016 SUBJECTIVE: He states he slept well last night. No shortness of breath, nausea, or vomiting. Ready for breakfast. OBJECTIVE: Vital Signs: Blood pressure 149/69, heart rate 70, respirations 20, afebrile. Intake and output are roughly even. Physical Examination: General: No acute distress. Skin: Warm and dry. HEENT: Conjunctivae are pink. Pupils are equal. Neck: Neck veins are not visible. Heart: Regular with a gallop. Lungs: Have equal breath sounds. No crackles or wheezes. Abdomen: Obese and soft. Bowel sounds are present. Nontender. Extremities: Have no edema, clubbing, or cyanosis. Laboratory Data: Pending for today. IMPRESSION: 1. Chronic kidney disease. He is at his historical baseline. From my perspective, it is okay for him to be discharged home. He missed his outpatient appointment with me and will reschedule. 2. Hypertension, acceptable. 3. Volume status, in target. cc: MD Ghassan Mims Jr, MD
[2016-08-29] MEDS ORDERED: SODIUM CHLORIDE 0.9% 10 ML ONE (08:32)
[2016-08-29] MEDS: COREG PO SCH (08:37)
[2016-08-29] MEDS: PROZAC PO SCH (08:37)
[2016-08-29] MEDS: KLOR-CON PO SCH (08:37)
[2016-08-29] MEDS: HEPARIN SUBQ SCH (08:37)
[2016-08-29] MEDS: OSCAL 500 + D PO SCH (08:37)
[2016-08-29] MEDS: MACROBID PO SCH (08:37)
[2016-08-29] MEDS: NORVASC PO SCH (08:38)
[2016-08-29] MEDS: FOLIC ACID PO SCH (08:38)
[2016-08-29] MEDS: LASIX PO SCH (08:38)
[2016-08-29 08:44] VITALS: BP 130/89
[2016-08-29] MEDS: SYMBICORT 160/4.5 MICROGM INHALER INH SCH (09:34)
--- NOTE | 2016-08-29 11:41 | DISCHARGE SUMMARY ---
ADMISSION DATE: 08/24/2016 DISCHARGE DATE: 08/29/2016 FINAL DIAGNOSES: 1. Respiratory distress, now resolved. 2. Chronic kidney disease. 3. Generalized edema. 4. Urinary tract infection. 5. Bronchiectasis. 6. Hypocalcemia. 7. Gouty arthritis. 8. Hypertension. 9. Adult-onset diabetes mellitus. 10. Hypoglycemia. 11. Folic acid deficiency. PLAN: Will discharge patient on home medications but hold his insulin and just take his oral agents for right now. Consultation was made with Cardiology. As he did have a high pro-B-type natriuretic peptide, but the echocardiogram did not show any signs of heart failure. Also consulted Nephrology he will be following-up. The patient has stage 4 chronic kidney disease. His creatinine clearance was 23. HOSPITAL COURSE: The patient had some respiratory is distress at first but this resolved fairly quickly. CT scan does show some bronchiectasis which may be contributing to his shortness of breath. He has oxygen at home. He has not been a smoker in the past. He is having no trouble with his breathing now. He was very anemic and was given some erythropoietin and his hemoglobin gonzález from 8.5 up to 13. PHYSICAL EXAMINATION: General: He is an overweight 81-year-old, white male in no apparent distress. He is still a little weak and was getting some physical therapy, which we will try to continue. HEENT: He is normocephalic. Extraocular movements intact. Pupils equal, round, and reactive to light. Throat clear. Lungs: Clear to auscultation and percussion without rhonchi, rales, or wheezes. Heart: Regular rate rhythm without murmurs, gallops, or friction rubs. Abdomen: Soft. Active bowel sounds. No organomegaly or tenderness. Neurological Examination: Was essentially intact. Will see him back in my office within the next week with a chemistry profile, CBC, and a urinalysis. He will be on Macrobid 100 mg p.o. b.i.d. for another 7 days for his urinary tract infection. cc: Ghassan Morton Jr, MD
== END 2016-08-29 10:27 | disposition home health service (06) ==
LOC: EDUNIT# → EDBD → ED 18:01 → SUATTDRO 22:02 → 3N 22:02
PROVIDERS: ADMIT Emergency Medicine; ATTEND Emergency Medicine

== ENCOUNTER 2019-03-14 15:26 | Inpatient (IN) ==
[2019-03-14 16:52] LABS: BASO# 0.01 X1000 (0.0-0.2); BASO% 0.1 % (0.0-0.8); EOS# 0.02 X1000 (0.0-0.7); EOS% 0.2 % (0.0-10.0); HEMATOCRIT 31.9 % (42.0-52.0); HEMOGLOBIN 10.1 g/dL (14.0-18.0); IMM GRAN# 0.03 X1000 (0.0-0.04); IMM GRAN% 0.3 % (0.0-0.5); LYMPH% 11.4 % (20.5-51.1); MCH 31.8 PG (27-31); MCHC 31.7 g/dL (33-37); MCV 100.3 FL (81-99); MONO% 11.4 % (1.7-9.3); MPV 9.4 FL (7.4-10.4); NEUT# 6.73 X1000 (1.4-6.5); NEUT% 76.6 % (42.2-75.2); PLT 152 X1000 (130-400); RBC 3.18 XMIL (4.7-6.1); RDW 15.2 % (11.5-14.5); WBC 8.79 X1000 (4.8-10.8)
--- NOTE | 2019-03-14 17:12 | Diag Imaging Result Doc PS360 ---
EXAM: CHEST-2 VIEWS HISTORY: cough TECHNIQUE: Chest two views COMPARISON: 10/31/2017 FINDINGS: There are bilateral infiltrates. Tiny right effusion. Mildly prominent heart. No left effusion. IMPRESSION: Bilateral pneumonia Electronically signed by Feliz Hawley 03/14/2019 5:09 PM
[2019-03-14 17:27] LABS: ALB/GLOB RATIO 0.6; ALBUMIN 2.5 g/dL (3.5-5.0); CALCIUM 8.5 mg/dL (8.8-10.2); CREATININE 2.2 mg/dL (0.7-1.2); POTASSIUM 4.5 mmol/L (3.5-5.1); TOTAL BILIRUBIN 1.6 mg/dL (0.20-1.00); TOTAL PROTEIN 6.7 g/dL (6.3-8.3)
[2019-03-14] MEDS ORDERED: ROCEPHIN 1 GM in NS 50 ML IV ONE (17:44)
[2019-03-14] MEDS ORDERED: TYLENOL PO PRN (17:45)
[2019-03-14] MEDS ORDERED: ZOFRAN IV PRN (17:45)
[2019-03-14] MEDS ORDERED: NS 1,000 ML IV ONE (17:45)
--- NOTE | 2019-03-14 17:56 | PROVIDER DOCUMENTATION ---
This chart was entered by Kaley Marx Scribe, acting as scribe for Ang Villeda DO. HPI-General Adult - General Chief Complaint: Cold Symptoms Stated Complaint: COUGH, DIZZY Time Seen by Provider: 03/14/19 15:57 Source: patient, family Allergies/Adverse Reactions: Patient Allergies Allergy/AdvReac Type Severity Reaction Status Date / Time codeine [Codeine] Allergy Mild HIVES Verified 03/14/19 16:30 Home Medications: Home Medication List Medication Instructions Recorded Confirmed Last Taken Type Fluoxetine HCl 20 mg PO BID 04/23/15 03/14/19 07/09/17 History Meclizine HCl [Antivert] 12.5 mg PO 4XDAY PRN 04/23/15 03/14/19 07/09/17 History PRAVAstatin [Pravachol] 80 mg PO QHS 04/23/15 03/14/19 07/09/17 History Furosemide [Lasix] 40 mg PO DAILY 08/02/16 03/14/19 07/09/17 History Potassium Chloride [Klor-Con M20] 20 meq PO DAILY 08/02/16 03/14/19 07/09/17 History Folic Acid 1 mg PO DAILY #30 tablet 08/14/16 03/14/19 07/09/17 Rx Calcium Carbonate [Calcium] 500 mg PO BID 07/08/17 03/14/19 07/09/17 History Insulin Glargine [Lantus] 25 unit SUBQ QHS 07/08/17 03/14/19 07/09/17 22:00 History Omeprazole [Prilosec] 40 mg PO DAILY 07/08/17 03/14/19 07/09/17 History Folic Acid/Vit B Complex and C 1 tab PO DAILY 10/31/17 03/14/19 Unknown History [Dialyvite 800 Tablet] Lidocaine/Prilocaine Cream [Emla 1 dose TOP ORDERED 02/15/19 03/14/19 Unknown History Cream] Primidone 50 mg PO BID 02/15/19 03/14/19 Unknown History Isosorbide Mononitrate E.r. [Imdur] 30 mg PO DAILY #30 tab 02/18/19 03/14/19 Unknown Rx Metoprolol Succinate E.r. [Toprol 25 mg PO DAILY #30 tab 02/18/19 03/14/19 Unknown Rx Xl] Aspirin [Aspir-Low] 81 mg PO DAILY 03/14/19 03/14/19 Unknown History Tamsulosin HCl 0.4 mg PO DAILY 03/14/19 03/14/19 Unknown History Venlafaxine HCl [Effexor Xr] 1 cap PO DAILY 03/14/19 03/14/19 Unknown History - History of Present Illness -Gen Adult Nature of Presenting Problems: 83 yowm presents w/ to er w/cc 2-3 days confusion, and today went to store and came back, found pt on porch, felt feverish, cough and rhinnorhea. pt has hemodyalysis TTS, dialyzed today and sts pt was sleeping and confused for it. [facility] sees pt, called rn today and rn referred pt to er for possible sinus infection. sts pt is normally not confused. pt has a resting tremor. pt was in hosp for 1 wk 2-3wks ago for poss cva. denies abd pain, nvd, and h/a. Location of Pain/Injury: reports: none Pain Radiation: reports: no radiation Quality of Pain: reports: none Severity: reports: mild Onset/Duration: reports: 2 days ago, 3 days ago Timing: reports: still present Context/Activities at Onset: reports: none Modifying Factors: improves with: nothing Associated Symptoms: reports: cough, fever/chills, sinus congestion/drainage Review of Systems - Adult - REVIEW OF SYSTEMS - ADULT Constitutional: reports: see HPI, fever. denies: chills, fatique, night sweats Eyes: reports: no symptoms reported Ears, Nose, Mouth & Throat: reports: see HPI, sinus problem (rhinnorhea). denies: ear discharge, ear pain, epistaxis, throat pain Cardiovascular: reports: no symptoms reported Respiratory: reports: see HPI, cough. denies: dyspnea on exertion, shortness of breath, wheezing Gastrointestinal: reports: no symptoms reported Genitourinary: reports: no symptoms reported Musculoskeletal: reports: no symptoms reported Integumentary: reports: no symptoms reported Neurological: reports: no symptoms reported Psychiatric: reports: see HPI, other (ams, confusion). denies: anxiety, anti-depressant use, insomnia Endocrine: reports: no symptoms reported Hematologic/Lymphatic: reports: no symptoms reported Allergic/Immunologic: reports: no symptoms reported All Other Systems: Reviewed and Negative Past History - Adult - PAST MEDICAL HISTORY-ADULT Review of Records: reports: Old Records Reviewed, Nursing Assessment Review, Medications Reviewed, Social history reviewed & non-contributory. Major Childhood Illnesses: reports: denies history Cardiovascular: reports: HTN, hyperlipidemia Respiratory: reports: denies history Gastrointestinal: reports: denies history Obstetrical/Gynecological: reports: denies history Genitourinary: reports: denies history Musculoskeletal: reports: denies history Neurological: reports: other (vertigo) Psychiatric: reports: anxiety Endocrine/Immune: reports: Diabetes Other Conditions: reports: denies history, cataract/glaucoma - PRIOR SURGERIES/PROCEDURES Surgical/Procedure History: reports: cholecystectomy, orthopedic (extremity), other - IMMUNIZATION STATUS Childhood Immunizations: See Nurse Assessment Flu Vaccine: See Nurse Assessment - FAMILY HISTORY Family History: reviewed, not pertinent - SOCIAL HISTORY Smoking: non-smoker Substance Use: none/never Physical Exam-General - PHYSICAL EXAM-ADULT Initial Vital Signs Reviewed: Yes - CONSTITUTIONAL General Appearance: alert, no apparent distress, slow to respond. negative: cachetic, lethargic - EYES Eyes: PERRL/EOMI, pink conjunctivae - HEAD, EARS, NOSE, MOUTH & THROAT HENMT: normocephalic/atraumatic, normal ENT inspection. negative: moist mucous membranes (dry muc mem) - NECK Neck: non-tender, full range of motion, supple, normal inspection - RESPIRATORY Respiratory: chest non-tender, lungs clear, normal breath sounds - CARDIOVASCULAR Cardiovascular: normal peripheral pulses, regular rate, rhythm - GASTROINTESTINAL (ABDOMEN) Abdominal Exam: normal bowel sounds, non tender, soft - LYMPHATIC Lymphatic: no adenopathy - MUSCULOSKELETAL Back Exam: normal inspection, no CVA tenderness, no vertebral tenderness Extremity: normal range of motion, non-tender, normal inspection Peripheral Pulses: radial (R): 2+, radial (L): 2+ - SKIN Integumentary: normal color, normal turgor, warm/dry - NEUROLOGIC Neurologic: network support technician II-XII nml as tested, grossly normal, no motor/sensory deficits, other (pt has bilat resting arm tremor). negative: facial droop, focal weakness, motor weakness, sensory deficit - PSYCHIATRIC Psych/Mental Status: normal mood/affect, normal thought content, normal thought process, oriented x 3, other (pt is mildly confused but is able to answer questions approprieately). negative: anxious, disheveled, depressed affect Progress - PLAN OF CARE/RESULTS Progress/Plan/Lab Results: Vital Signs - 8 hr 03/14/19 15:37 Temperature 99.2 F Pulse Rate 71 Respiratory Rate 20 Blood Pressure 142/55 O2 Sat by Pulse Oximetry 92 L Result Diagrams: 03/14/19 16:25 03/14/19 16:25 - REASSESSMENT Reassessment #1 Time Reassessed: 17:54 Status: unchanged - XRAY 1 XRAY Study: Chest Impression: Abnormal, See EMR Report ( EXAM: CHEST-2 VIEWS HISTORY: cough TECHNIQUE: Chest two views COMPARISON: 10/31/2017 FINDINGS: There are bilateral infiltrates. Tiny right effusion. Mildly prominent heart. No left effusion. IMPRESSION: Bilateral pneumonia Electronically signed by Feliz Hawley 03/14/2019 5:09 PM) - CONSULTS/PCP/HOSPITALIST Notification #1 *Consult/PCP/Hospitalist*: Dr Mittal Time Discussed: 17:44 Consult Disposition: Admit Departure - Departure Date of Disposition Decision: 03/14/19 Time of Disposition Decision: 17:55 DIAGNOSIS: Pneumonia, ESRD (end stage renal disease) on dialysis Disposition: ADMITTED INPATIENT 09 Certified Medical Emergency: Emergent Condition: Serious Referrals and Follow-Ups: Ghassan Morton Jr, MD [Primary Care Provider] - - Critical Care Note This patient required my direct & personal management of CC.: No Attestation - Physician/ SEBASTIAN Attestation Patient care was provided by Advanced Practice Provider:: No The physician spent face to face time with patient:: Yes Advanced Practice Provider documentation review:: Supervising physician onsite and consulted in the evaluation and care of this patient. The physician did have a face to face encounter with the patient. This chart was documented by the indicated scribe, (Kaley Marx Scribe) and accurately reflects the services I performed and decisions made by , Ang Villeda DO, as attested by the provider's signature.
[2019-03-14] MEDS ORDERED: IMDUR PO SCH (18:00)
[2019-03-14] MEDS ORDERED: TOPROL XL PO SCH (18:00)
[2019-03-14] MEDS ORDERED: ZITHROMAX PO ONE (18:17)
[2019-03-14] MEDS: PRAVACHOL PO SCH (20:16)
[2019-03-14] MEDS: PROTONIX IV SCH (20:17)
[2019-03-14] MEDS: ROCEPHIN 1 GM in NS 50 ML IV SCH (20:17)
[2019-03-14] MEDS: SODIUM CHLORIDE 0.9% INJ SCH (20:17)
[2019-03-14] MEDS: LEVAQUIN 250 MG/D5W 250 MG/50 ML IVPB IV SCH (20:17)
[2019-03-14] MEDS: CALTRATE 600 PO SCH (20:19)
[2019-03-14] MEDS: HUMULIN R SUBQ SCH (20:36)
--- NOTE | 2019-03-14 22:11 | EKG Report ---
Test Performed on : 03/14/2019 10:05:58 PM Test Reason : chest pain Blood Pressure : / mmHG Vent. Rate : 067 BPM Atrial Rate : 067 BPM P-R Int : 166 ms QRS Dur : 086 ms QT Int : 460 ms P-R-T Axes : 041 008 -02 degrees QTc Int : 486 ms Normal sinus rhythm. Prolonged QT Abnormal ECG When compared with ECG of 16-FEB-2019 06:59, T wave inversion now evident in Inferior leads Confirmed by Ginna CATHERINE, Christopher Liu ([id number]) on 03/15/2019 10:52:30 AM
--- NOTE | 2019-03-14 22:49 | HISTORY AND PHYSICAL ---
CHIEF COMPLAINT: Cough, altered mental status. HISTORY OF PRESENT ILLNESS: He is an 83-year-old white male patient of Dr. Morton, recently discharged from the hospital last month for the evaluation of cardiac status. He had a hemodialysis in [place] by Dr. Woodard this afternoon. He was coughing and altered mental status. No significant improvement after dialysis. Brought to the emergency room. Patient was found to have bilateral infiltrates. It looks like bilateral pneumonia. No fever. He did not have any symptoms and signs of heart failure. He is confused. His is at bedside. Normal white cell count. At this time will treat as a community-acquired pneumonia with IV Levaquin 250 mg every other day after dialysis and Rocephin. He does not have living will. He is a full code. Most of the history was obtained from the patient's . PAST MEDICAL HISTORY: 1. End-stage kidney disease on dialysis 3 times a week Saturday, , and Saturday. 2. Depression. 3. Hyperlipidemia. 4. Type 2 diabetes. 5. Acid reflux disease. 6. Essential tremor. 7. BPH. 8. Abnormal stress test on 02/17/2019. PAST SURGICAL HISTORY: Reported bilateral cataract surgery, cholecystectomy and finger surgery for gout, AV graft on the left arm. MEDICATIONS: Prozac 20 mg p.o. b.i.d., meclizine as needed, Pravachol 80 mg daily, Lasix 40 daily, potassium 20 mEq daily, folic acid 1 mg daily, calcium 500 p.o. b.i.d., Lantus 25 units subcutaneous at bedtime, Prilosec 40 daily, folic acid B complex 1 tablet daily, primidone 50 p.o. b.i.d., isosorbide 30 mg daily, metoprolol 25 daily, Effexor 150 daily, aspirin 81 mg daily, Flomax 0.4 daily. ALLERGIES: Reported to codeine. SOCIAL HISTORY: Retired from air conditioning business. Lives in [place] with . No children. No smoking. No alcohol. FAMILY HISTORY: Both parents of natural causes. HEALTH MAINTENANCE: Flu vaccine 2019, pneumococcal vaccine was also given as per the history. Living will is full code. REVIEW OF SYSTEMS: HEENT: Confused, mostly cough and shortness of breath. No chest pain. GI: No nausea, vomiting, abdominal pain. No focal symptoms. He is in diapers. No skin rashes. No fever. PHYSICAL EXAMINATION: Afebrile. Temperature is 98.9 degrees, pulse 73, blood pressure is 115/97, 95% saturation on nasal cannula 2 L. Not in respiratory distress, coughing. Atraumatic, normocephalic. NECK: Supple. No lymphadenopathy. CHEST: Bilateral air entry with crackles mostly on the left upper chest. Distant heart sounds. Belly soft, nontender. He is in diapers. No peripheral edema, cyanosis. No obvious deficits noted. INVESTIGATIONS: CBC. White cell count 8.7, hematocrit 31.9, platelets 152,000. Sodium 141, potassium 4.5, chloride 104, BUN 11, creatinine 2.2, glucose 222, total bilirubin 1.6. Troponin was positive. ProBNP 5066. Chest x-ray reported bilateral infiltrates mostly in the left upper lobe. EKG is pending. ASSESSMENT AND PLAN: 1. An 83-year-old white gentleman brought in with persistent cough, altered mental status with bilateral infiltrates. Treat as pneumonia. Plan is #1. No symptoms and signs of heart failure even the elevated proBNP. #2. Oxygen and continue Levaquin and Rocephin. 2. Type 2 diabetes insulin dependent, sliding scale, will slowly reconcile his insulin. 3. Gastrointestinal prophylaxis with IV Nexium 4. Abnormal nuclear scan, positive troponin. Recently had a stress test. Echocardiogram was done. Good LV function, normal EKG. Will continue on aspirin, beta blockers, isosorbide. 5. End-stage kidney disease. Dr. Woodard consult is due for next hemodialysis on Saturday. 6. Vaccinations were up-to-date. Living will is full code. Discussed the plan of care with the at bedside and will follow up. cc: Yandel Mittal MD
[2019-03-15 04:27] LABS: ALLEN TEST YES; BE 2.6 mmoll (-3.0-3.0); BLOOD TYPE ARTERIAL; HCO3-(ACT) 26.9 mmoll (20.0-26.0); METHB 1.4 % (0.0-1.5); O2(CT) 13.1 mL/dL (15.0-23.0); O2HB 93.9 % (95.0-99.0); PCO2(98.6) 34 mmHg (35-45); PO2(98.6) 72 mmHg (60-100); SAMPLE BLOOD; SAO2 96.9 % (95.0-100.0); THB 9.9 g/dL (11.5-17.4); pH(98.6) 7.49 (7.35-7.45)
[2019-03-15 04:28] LABS: MODALITY CANNULA
[2019-03-15] MEDS: HUMULIN R SUBQ SCH ×4 (06:00→20:08)
[2019-03-15 07:36] LABS: BASO# 0.02 X1000 (0.0-0.2); BASO% 0.2 % (0.0-0.8); EOS# 0.06 X1000 (0.0-0.7); EOS% 0.7 % (0.0-10.0); HEMATOCRIT 30.9 % (42.0-52.0); HEMOGLOBIN 9.5 g/dL (14.0-18.0); IMM GRAN# 0.04 X1000 (0.0-0.04); IMM GRAN% 0.5 % (0.0-0.5); LYMPH# 1.41 X1000 (1.2-3.4); LYMPH% 16.9 % (20.5-51.1); MCH 31.3 PG (27-31); MCHC 30.7 g/dL (33-37); MCV 101.6 FL (81-99); MONO# 0.89 X1000 (0.11-0.59); MONO% 10.7 % (1.7-9.3); MPV 8.9 FL (7.4-10.4); NEUT# 5.93 X1000 (1.4-6.5); PLT 125 X1000 (130-400); RBC 3.04 XMIL (4.7-6.1); RDW 15.4 % (11.5-14.5); WBC 8.35 X1000 (4.8-10.8)
[2019-03-15 08:11] LABS: CALCIUM 9.2 mg/dL (8.8-10.2); POTASSIUM 4.3 mmol/L (3.5-5.1)
[2019-03-15] MEDS: IMDUR PO SCH (09:26)
[2019-03-15] MEDS: EFFEXOR XR PO SCH (09:26)
[2019-03-15] MEDS: TOPROL XL PO SCH (09:26)
[2019-03-15] MEDS: NEPHRO-VITE PO SCH (09:26)
[2019-03-15] MEDS: CALTRATE 600 PO SCH ×2 (09:26→19:59)
[2019-03-15] MEDS: FLOMAX PO SCH (09:26)
[2019-03-15] MEDS: ASPIRIN EC PO SCH (09:26)
--- NOTE | 2019-03-15 10:32 | Diag Imaging Result Doc PS360 ---
EXAM: CHEST-2 VIEWS - 03/15/2019 HISTORY: hypoxia TECHNIQUE: Chest two views COMPARISON: 03/14/2019 FINDINGS: Heart size appears within normal limits and mildly decreased mildly. There has been interval decrease in infiltrate and pleural fluid at the right base. There are right upper lung infiltrate and relatively diffuse left lung infiltrate which appear grossly stable. There is no pneumothorax identified. IMPRESSION: Decrease in infiltrate and pleural fluid at right base. Grossly stable right upper lung and relatively diffuse left lung infiltrates. Electronically signed by Ronald Aguilera 03/15/2019 10:30 AM
--- NOTE | 2019-03-15 12:19 | PROGRESS NOTE ---
DATE: 03/15/2019 SUBJECTIVE: An 84-year-old white male admitted to the hospital with bilateral pneumonia last night. Patient is more alert and less cough. REVIEW OF SYSTEMS: None reported. PHYSICAL EXAMINATION: Vital signs: Temperature is 98.1 degrees, pulse 68, blood pressure is 119/54. HEENT: Within normal limits. Lungs: Crackles on the left upper lobe. Heart: Sounds are distant. Abdomen: Belly is soft, nontender. Neurologic: No obvious deficits. INVESTIGATIONS: White cell count 8.3, hematocrit 30.9, platelets 125,000. ABG showed pH is 7.49, pCO2 34, PO2 72 on 28%. Sodium 140, potassium 4.3, BUN 18, creatinine 3.0, glucose 147. Chest x- ray with dense infiltrate, pleural fluid in the right base and slight improvement. ASSESSMENT AND PLAN: 1. Bilateral pneumonia, left worse than the right side. Continue Levaquin and ceftriaxone and oxygen. 2. End-stage kidney disease. The patient is doing dialysis on Saturday. Consult Dr. Woodard in the morning. 3. Noncritical coronary artery disease. Empirical treatment with aspirin, beta blockers, isosorbide. 4. Discussed the plan of care with family member at bedside, and Dr. Morton is going to follow up. Continue present treatment. LEVEL OF DOCUMENTATION: 25 minutes. cc: Yandel Mittal MD
[2019-03-15] MEDS: PROTONIX IV SCH (19:49)
[2019-03-15] MEDS: SODIUM CHLORIDE 0.9% INJ SCH (19:49)
[2019-03-15] MEDS: ROCEPHIN 1 GM in NS 50 ML IV SCH (19:59)
[2019-03-15] MEDS: LEVAQUIN 250 MG/D5W 250 MG/50 ML IVPB IV SCH (20:03)
[2019-03-15] MEDS: PRAVACHOL PO SCH (20:03)
[2019-03-16] MEDS: HUMULIN R SUBQ SCH ×4 (06:00→21:02)
[2019-03-16 07:37] LABS: BASO# 0.03 X1000 (0.0-0.2); BASO% 0.3 % (0.0-0.8); EOS# 0.06 X1000 (0.0-0.7); EOS% 0.6 % (0.0-10.0); IMM GRAN# 0.04 X1000 (0.0-0.04); IMM GRAN% 0.4 % (0.0-0.5); LYMPH# 1.24 X1000 (1.2-3.4); LYMPH% 13.1 % (20.5-51.1); MCH 30.5 PG (27-31); MCV 101.7 FL (81-99); MONO# 1.05 X1000 (0.11-0.59); MONO% 11.1 % (1.7-9.3); NEUT# 7.03 X1000 (1.4-6.5); NEUT% 74.5 % (42.2-75.2); PLT 116 X1000 (130-400); RBC 2.95 XMIL (4.7-6.1); WBC 9.45 X1000 (4.8-10.8)
[2019-03-16] MEDS ORDERED: ANTIVERT PO PRN (07:48)
[2019-03-16 08:01] LABS: CALCIUM 9.3 mg/dL (8.8-10.2); CREATININE 4.5 mg/dL (0.7-1.2); POTASSIUM 3.8 mmol/L (3.5-5.1)
[2019-03-16] MEDS: IMDUR PO SCH (08:36)
[2019-03-16] MEDS: NEPHRO-VITE PO SCH (08:36)
[2019-03-16] MEDS: TOPROL XL PO SCH (08:36)
[2019-03-16] MEDS: FLOMAX PO SCH (08:36)
[2019-03-16] MEDS: CALTRATE 600 PO SCH ×2 (08:36→21:01)
[2019-03-16] MEDS: ASPIRIN EC PO SCH (08:36)
[2019-03-16] MEDS: EFFEXOR XR PO SCH (08:36)
[2019-03-16] MEDS: MYSOLINE PO SCH ×2 (08:48→21:01)
--- NOTE | 2019-03-16 09:29 | Diag Imaging Result Doc PS360 ---
EXAM: CHEST-2 VIEWS HISTORY: hypoxia TECHNIQUE: Two views COMPARISON: 03/15/2019 FINDINGS: There are dense bilateral infiltrates. Poor inspiratory effort. Tiny pleural effusions. Heart is borderline mildly prominent. IMPRESSION: No interval improvement Electronically signed by Feliz Hawley 03/16/2019 9:27 AM
--- NOTE | 2019-03-16 09:44 | PROGRESS NOTE ---
DATE: 03/16/2019 SUBJECTIVE: The patient says he is feeling a little bit better. He lifted himself up without any difficulty. This morning he says this is the first time he has been able to do that. First one when he first came. LABORATORY: White count 9450, hemoglobin is 9.0. He has chronic anemia. His blood sugar is 167. Creatinine yesterday was 3, BUN 18. He is due for dialysis tomorrow. OBJECTIVE: Vital Signs: Temperature is 98 degrees Fahrenheit. Pulse 73, respirations 18, blood pressure 143/52, oxygen saturation is 95% on 2 L per nasal cannula. HEENT: He is normocephalic. EOMS intact. PERRLA. Throat clear. Lungs: Have a few rales in the bases bilaterally. The chest x-ray shows improvement of the right lower lobe pneumonia. He still has some diffuse left lower lobe pneumonia. Heart: Regular rate and rhythm without murmurs, gallops, friction rubs. Abdomen: Soft. Active bowel sounds. No organomegaly or tenderness. Neurological: Intact grossly. ASSESSMENT: 1. Bilateral pneumonia. 2. Altered mental status now resolved. 3. End-stage renal failure on dialysis. 4. Diabetes mellitus. 5. Tremor. 6. Hypertension. 7. Benign prostatic hypertrophy. 8. Anxiety. 9. Depression. PLAN: Continue care. Will need dialysis. cc: MD Yandel Nazario Jr, MD
[2019-03-16] MEDS: PRAVACHOL PO SCH (21:01)
[2019-03-16] MEDS: ROCEPHIN 1 GM in NS 50 ML IV SCH (21:01)
[2019-03-16] MEDS: PROTONIX IV SCH (21:02)
--- NOTE | 2019-03-16 21:21 | NEPHROLOGY CONSULTATION ---
DATE: 03/16/2019 REASON FOR CONSULTATION: "On dialysis." CONSULTING PHYSICIAN: Dr. Morton. HISTORY OF PRESENT ILLNESS: Mr. Dominguez is an 84-year-old white male, who is on chronic hemodialysis. He came into the hospital because of cough and altered mental state. He receives his routine dialysis in [place] every Saturday, , and Saturday. He describes having a chill at his dialysis treatment that was followed by cough. He currently is feeling better and is eating his breakfast. PAST MEDICAL HISTORY: As above. He also has diabetes, hypertension, hyperlipidemia, essential tremor. HOME MEDICATIONS: Include Prozac, Pravachol, furosemide, potassium, calcium, insulin, Prilosec, folate, primidone, isosorbide, Effexor, metoprolol, Flomax. ALLERGIES: Codeine. SOCIAL HISTORY: and lives with his . No alcohol or tobacco. FAMILY HISTORY: Noncontributory. REVIEW OF SYSTEMS: Noncontributory. PHYSICAL EXAMINATION: Vital Signs: Blood pressure 154/94, heart rate 72, respirations 16, afebrile. General: Chronically ill, elderly man, no acute distress. Skin is warm and dry, thin with bruising. Conjunctivae are pink. Pupils are equal. Oropharynx is clear. Neck veins are not distended. Trachea is midline. Heart is regular, no gallops. Lungs are equal, no crackles. Abdomen is soft, nontender. Bowel sounds present. Extremities: 1+ edema. No clubbing or cyanosis. IMPRESSION: 1. Chronic kidney disease, 5D. He will have his routine hemodialysis treatment tomorrow. 2. Electrolytes/acid-base/blood pressure/volume status all in target. 3. Anemia. Hemoglobin trending down, but he certainly does not meet criteria for treatment at this time. cc: MD Yandel Mims MD
[2019-03-17] MEDS: HUMULIN R SUBQ SCH ×4 (06:14→21:47)
[2019-03-17] MEDS ORDERED: NS 2,000 ML MISC PRN (06:23)
[2019-03-17] MEDS ORDERED: TIGHT: 0.2 ML/HR FOR DIALYSIS MISC PRN (06:23)
[2019-03-17] MEDS ORDERED: HEPARIN IV PRN (06:23)
[2019-03-17 07:06] LABS: BASO# 0.02 X1000 (0.0-0.2); BASO% 0.2 % (0.0-0.8); EOS# 0.08 X1000 (0.0-0.7); EOS% 0.9 % (0.0-10.0); HEMATOCRIT 29.6 % (42.0-52.0); HEMOGLOBIN 9.3 g/dL (14.0-18.0); IMM GRAN# 0.04 X1000 (0.0-0.04); IMM GRAN% 0.5 % (0.0-0.5); LYMPH# 0.93 X1000 (1.2-3.4); LYMPH% 10.7 % (20.5-51.1); MCH 31.4 PG (27-31); MCHC 31.4 g/dL (33-37); MONO# 0.82 X1000 (0.11-0.59); MONO% 9.5 % (1.7-9.3); MPV 9.1 FL (7.4-10.4); NEUT# 6.77 X1000 (1.4-6.5); NEUT% 78.2 % (42.2-75.2); PLT 114 X1000 (130-400); RBC 2.96 XMIL (4.7-6.1); RDW 14.7 % (11.5-14.5); WBC 8.66 X1000 (4.8-10.8)
--- NOTE | 2019-03-17 07:29 | Diag Imaging Result Doc PS360 ---
EXAM: CHEST-PORTABLE INDICATION: pneumonia TECHNIQUE: One view COMPARISON: 03/16/2019 FINDINGS: Extensive bilateral infiltrates are again noted. They have worsened at least slightly during the interval having increased in density. Cardiac silhouette is stable. IMPRESSION: Interval worsening. Electronically signed by Luis Miguel Marx 03/17/2019 7:27 AM
[2019-03-17 07:32] LABS: CALCIUM 9.7 mg/dL (8.8-10.2); POTASSIUM 3.7 mmol/L (3.5-5.1)
[2019-03-17 07:42] LABS: CREATININE 5.3 mg/dL (0.7-1.2)
--- NOTE | 2019-03-17 09:50 | PROGRESS NOTE ---
DATE: 03/17/2019 SUBJECTIVE: The patient says he is feeling better. Chest x-ray shows slight worsening of the infiltrates. He is getting dialysis today. We will see how this does for the fluid in his chest as well. OBJECTIVE: Temperature is 96.9 degrees Fahrenheit, pulse is 69, respirations 20, blood pressure 107/48. HEENT: Normocephalic. EOMs intact. PERRLA. Throat clear. Lungs: Have a few rales anteriorly. No wheezing or rhonchi. Heart: Regular rate and rhythm without murmurs, gallops, or friction rubs. Abdomen: Soft. Active bowel sounds. No organomegaly or tenderness. Neurological: Examination intact grossly. Chest x-ray shows extensive bilateral infiltrates. PLAN: Continue care. Clinically, the patient seems to be doing a little better. cc: MD Yandel Nazario Jr, MD
--- NOTE | 2019-03-17 10:38 | NEPHROLOGY PROGRESS NOTE ---
DATE: 03/17/2019 SUBJECTIVE: He states he feels fine this morning. He denies shortness of breath. States he is eating well. No chills or fevers. OBJECTIVE: Vital Signs: Blood pressure 107/48, heart rate 69, respirations 20, afebrile. General: No acute distress. Chronically ill-appearing. Skin: Warm and dry. Neck: Neck veins are not visible. Heart: Regular with systolic murmur. Lungs: Equal with crackles diffusely. Abdomen: Soft, nontender. Bowel sounds present. Extremities: No edema, clubbing, or cyanosis. IMPRESSION: Chronic kidney disease 5D. He will have his routine hemodialysis today using his outpatient prescription. Electrolytes/acid base in target. His hemoglobin is below target, but stable. No intervention. Blood pressure in target. cc: MD Yandel Mims MD
[2019-03-17] MEDS: CALTRATE 600 PO SCH ×2 (13:05→21:46)
[2019-03-17] MEDS: FLOMAX PO SCH (13:05)
[2019-03-17] MEDS: NEPHRO-VITE PO SCH (13:05)
[2019-03-17] MEDS: EFFEXOR XR PO SCH (13:05)
[2019-03-17] MEDS: IMDUR PO SCH (13:06)
[2019-03-17] MEDS: ASPIRIN EC PO SCH (13:06)
[2019-03-17] MEDS: MYSOLINE PO SCH ×2 (13:06→21:46)
[2019-03-17] MEDS: TOPROL XL PO SCH (13:06)
--- NOTE | 2019-03-17 15:00 | Diag Imaging Result Doc PS360 ---
CHEST-2 VIEWS - 03/17/2019 2:22 PM INDICATION: hypoxia COMPARISON: 5:57 AM FINDINGS: There has been improvement in the basilar infiltrates, mainly at the right lower lobe. Otherwise persistent dense bilateral infiltrates. Heart size remains top normal. No large pleural effusion. IMPRESSION: Small amount of improvement in the aeration of the lung bases. Electronically signed by Carlos Alberto Whelan 03/17/2019 2:58 PM
[2019-03-17] MEDS: ROCEPHIN 1 GM in NS 50 ML IV SCH (20:45)
[2019-03-17] MEDS: PRAVACHOL PO SCH (21:46)
[2019-03-17] MEDS: PROTONIX PO SCH (21:47)
[2019-03-17] MEDS: LEVAQUIN 250 MG/D5W 250 MG/50 ML IVPB IV SCH (21:48)
[2019-03-18] MEDS: HUMULIN R SUBQ SCH ×3 (06:13→16:09)
[2019-03-18 07:27] LABS: BASO# 0.02 X1000 (0.0-0.2); BASO% 0.2 % (0.0-0.8); EOS# 0.03 X1000 (0.0-0.7); EOS% 0.3 % (0.0-10.0); HEMATOCRIT 30.2 % (42.0-52.0); HEMOGLOBIN 9.4 g/dL (14.0-18.0); IMM GRAN# 0.04 X1000 (0.0-0.04); IMM GRAN% 0.4 % (0.0-0.5); LYMPH# 1.02 X1000 (1.2-3.4); MCH 31.1 PG (27-31); MCHC 31.1 g/dL (33-37); MONO% 7.6 % (1.7-9.3); MPV 9.2 FL (7.4-10.4); NEUT# 7.46 X1000 (1.4-6.5); NEUT% 80.5 % (42.2-75.2); PLT 118 X1000 (130-400); RBC 3.02 XMIL (4.7-6.1); RDW 14.8 % (11.5-14.5); WBC 9.27 X1000 (4.8-10.8)
[2019-03-18] MEDS ORDERED: SOLU-MEDROL IV SCH (07:30)
--- NOTE | 2019-03-18 07:35 | Diag Imaging Result Doc PS360 ---
EXAM: CHEST-PORTABLE INDICATION: pneumonia TECHNIQUE: One view COMPARISON: 03/17/2019 FINDINGS: Diffuse bilateral infiltrates appear slightly more dense. This could be due to slight differences in exposure, however. No new consolidation is identified, otherwise. Cardiac silhouette is stable. IMPRESSION: Interval slightly worsened bilateral diffuse infiltrates. Electronically signed by Luis Miguel Marx 03/18/2019 7:33 AM
--- NOTE | 2019-03-18 07:53 | PROGRESS NOTE ---
DATE: 03/18/2019 SUBJECTIVE: The patient says he is feeling a little bit better. He seems to be in no distress. OBJECTIVE: Vital Signs: Temperature 97.8 degrees Fahrenheit, pulse 83 and regular, respirations 18, blood pressure 135/54, and oxygen saturation is ranging from 90 to 94 percent on 2 L per nasal cannula. White count is normal at 9270. Hemoglobin a little low at 9.4. HEENT: Normocephalic. EOMs intact. PERRLA. Throat clear. Lungs: Some rales and wheezes anteriorly. Heart: Regular rate and rhythm without murmurs, gallops, or friction rubs. Abdomen: Soft. Active bowel sounds. No organomegaly or tenderness. Neurological: Intact grossly. DIAGNOSTIC: Chest x-ray done today still shows extensive fluffy bilateral infiltrates consistent with pneumonia. These may look a little bit worse to me today than they did with his previous x- ray. This has not been read by radiology yet. ASSESSMENT: Bilateral pneumonia. PLAN: We will consult Pulmonology since patient seems to be getting worse at least radiographically, and we will treat the bronchospasm. cc: MD Yandel Nazario Jr, MD
[2019-03-18 07:57] LABS: CALCIUM 8.6 mg/dL (8.8-10.2); CREATININE 3.7 mg/dL (0.7-1.2); POTASSIUM 3.4 mmol/L (3.5-5.1)
[2019-03-18] MEDS: EFFEXOR XR PO SCH (09:18)
[2019-03-18] MEDS: FLOMAX PO SCH (09:18)
[2019-03-18] MEDS: ASPIRIN EC PO SCH (09:18)
[2019-03-18] MEDS: MYSOLINE PO SCH ×2 (09:19→20:07)
[2019-03-18] MEDS: CALTRATE 600 PO SCH ×2 (09:19→20:26)
[2019-03-18] MEDS: TOPROL XL PO SCH (09:19)
[2019-03-18] MEDS: NEPHRO-VITE PO SCH (09:19)
[2019-03-18] MEDS: IMDUR PO SCH (09:19)
[2019-03-18] MEDS: PREDNISONE PO SCH (09:19)
[2019-03-18] MEDS ORDERED: CALMOSEPTINE OINTMENT TOP PRN (09:58)
[2019-03-18] MEDS: DUONEB (A & A) INH SCH ×3 (10:30→21:10)
--- NOTE | 2019-03-18 13:25 | NEPHROLOGY PROGRESS NOTE ---
DATE: 03/18/2019 Subjective: patient lying in bed awake talking with roommate. Incoherent at times. Objective: vitals. Temperature 97.9, pulse 65 respirations 18, 40, 02 sat 93% on room air. General: chronically ill appearing white male lying in bed and no acute distress. HEENT: a traumatic, normocephalic. Pupils equal and reactive to light. Trachea midline. Skin: warm dry and intact. Neck: supple, no JVD appreciated. Cardiovascular: S1 S2 regular rate and rhythm with a systolic murmur. Respiratory: crackles diffusely to bilaterally. Abdomen: soft, nontender and nondistended. Bowel sounds present. : not inspected Extremities: chronic Edema noted to bilateral lower extremities Neurological: alert, oriented to person. incoherent speech. Labs: WBC 9.27, hemoglobin 9.4, hematocrit 30.2, platelet count 118, sodium 141, potassium 3.4, chloride 101, carbon dioxide 23, anion gap 17, BUN 30, creatinine 3.7, calcium 8.6. Intake 500, output 1800 per dialysis. Impression: Chronic kidney disease stage 5D. He received his routine hemodialysis yesterday with a 1.8 L output. His peak creatinine was 5.3. Today he has improved to 3.7. His next planned treatment is tomorrow. rg Electrolytes and acid base balance. In target. Anemia. Low but stable. Does not meet transfusion criteria. Blood pressure. In target. Hospital delirium. Stop IV Solu-Medrol and started prednisone 40 mg PO daily. cc: MD Yandel Mims MD [facility]
[2019-03-18] MEDS ORDERED: XANAX PO PRN (17:34)
[2019-03-18] MEDS: ROCEPHIN 1 GM in NS 50 ML IV SCH (20:06)
[2019-03-18] MEDS: PRAVACHOL PO SCH (20:07)
[2019-03-18] MEDS: PROTONIX PO SCH (20:17)
--- NOTE | 2019-03-18 22:07 | PULMONOLOGY CONSULTATION ---
DATE: 03/18/2019 REQUESTING CLINICIAN: Dr. Ghassan Morton. REASON FOR CONSULTATION: Worsening pneumonia. HISTORY OF PRESENT ILLNESS: Mr. Dominguez is an 84-year-old white male with end- stage renal disease, who was admitted to the hospital between 02/15/2019 and 02/18/2019 with fatigue, chest pain, and shortness of breath. No chest x-ray obtained during that hospitalization. The patient returned to the emergency room on 03/14/2019 with confusion, fever, cough, and rhinorrhea. Chest x-ray reveals diffuse bilateral infiltrates. Patient has been initiated on antibiotics, but chest x-ray today reveals worsening infiltrates. The patient makes a very poor historian. He is not sure of his location. He does report some dysphagia. OBJECTIVE: Vital Signs: The patient is afebrile. Blood pressure 102/47, heart rate 71, respiratory rate 21, oxygen saturation 95% on 2 L per nasal cannula. HEENT: Pupils are equal and reactive. Oropharynx appears clear. Neck: Supple. Chest: Reveals scattered rhonchi and wheezing bilaterally. Cardiac: S1, S2. Abdomen: Soft. Extremities: Without edema. LABORATORIES: No microbiology specimens obtained. White blood count 9.27, hemoglobin 9.4, platelet count 118,000. IMPRESSION: An 84-year-old with pneumonia, with radiographic worsening. He is a very poor historian. Given presentation,this is aspiration pneumonia. He has had confusion and, with his age, is at high risk for aspiration. PLAN: 1. Continue current antibiotic regimen. Consider expanding gram-positive coverage with vancomycin if he shows clinical decline. 2. Continue oxygen for hypoxemic respiratory failure. 3. Obtain a modified barium swallow. cc: MD Yandel Barfield MD [facility]
[2019-03-19] MEDS: DUONEB (A & A) INH SCH ×5 (03:40→22:50)
[2019-03-19] MEDS: HUMULIN R SUBQ SCH ×5 (04:43→23:17)
[2019-03-19] MEDS ORDERED: TIGHT: 0.2 ML/HR FOR DIALYSIS MISC PRN (06:16)
[2019-03-19] MEDS ORDERED: NS 2,000 ML MISC PRN (06:16)
[2019-03-19] MEDS ORDERED: HEPARIN IV PRN (06:16)
[2019-03-19 08:03] LABS: BASO# 0.02 X1000 (0.0-0.2); BASO% 0.2 % (0.0-0.8); HEMATOCRIT 27.6 % (42.0-52.0); HEMOGLOBIN 8.8 g/dL (14.0-18.0); IMM GRAN# 0.06 X1000 (0.0-0.04); IMM GRAN% 0.6 % (0.0-0.5); LYMPH# 0.79 X1000 (1.2-3.4); LYMPH% 7.5 % (20.5-51.1); MCH 31.3 PG (27-31); MCHC 31.9 g/dL (33-37); MCV 98.2 FL (81-99); MONO# 0.72 X1000 (0.11-0.59); MONO% 6.9 % (1.7-9.3); MPV 9.5 FL (7.4-10.4); NEUT# 8.89 X1000 (1.4-6.5); NEUT% 84.8 % (42.2-75.2); PLT 113 X1000 (130-400); RBC 2.81 XMIL (4.7-6.1); RDW 14.7 % (11.5-14.5); WBC 10.48 X1000 (4.8-10.8)
--- NOTE | 2019-03-19 08:08 | Diag Imaging Result Doc PS360 ---
CHEST-2 VIEWS - 03/19/2019 INDICATION: pneumonia COMPARISON: 03/18/2019 FINDINGS: No change in the diffuse bilateral mixed infiltrates. Heart size is top normal. There is a trace right pleural effusion. IMPRESSION: No change from prior. Electronically signed by Carlos Alberto Whelan 03/19/2019 8:06 AM
[2019-03-19 08:44] LABS: CALCIUM 9.1 mg/dL (8.8-10.2); POTASSIUM 3.3 mmol/L (3.5-5.1)
[2019-03-19 08:46] LABS: CREATININE 5.1 mg/dL (0.7-1.2)
[2019-03-19] MEDS ORDERED: VANCOMYCIN IV PER PHARMACY MISC SCH (09:15)
[2019-03-19] MEDS ORDERED: VANCOMYCIN 1 GM/NS 1 GM/250 ML IVPB IV ONE ×2 (10:00→17:00)
--- NOTE | 2019-03-19 10:25 | PROGRESS NOTE ---
DATE: 03/19/2019 SUBJECTIVE: The patient is a little bit more confused this morning. Speech is a little bit more slurred. Does not seem to feel quite as well. Chest x-ray today looks about the same as it did yesterday with extensive bilateral infiltrates. I appreciate Dr. Rees coming and seeing the patient. He mentioned that if patient worsened clinically we might consider adding vancomycin. White count has gone up slightly though still in the normal range at 10,480. The patient clinically does not seem to be more short of breath but is a little bit more confused. He had been agitated yesterday and I was called to give him something for the agitation. We put him on some Xanax. This all may be having some effect on him. OBJECTIVE: Vital signs: Blood pressure is 146/39, respirations 18, pulse 80, temperature 97 degrees Fahrenheit. Oxygen saturation has been down to 90% on 2 L per nasal cannula, the last check was 94%. HEENT: Normocephalic. EOMS intact. PERRLA. Throat clear. Lungs: Have scattered rales. Heart: Regular rate and rhythm without murmurs, gallops, or friction rubs. Abdomen: Soft with active bowel sounds. No organomegaly or tenderness. Neurologic Exam: The patient is a little bit more confused, a little bit more slurred speech. This could be due to Xanax. Could not answer my questions about where he was. ASSESSMENT: 1. Bilateral pneumonia. 2. Renal failure. PLAN: Because he seems to decline a little bit clinically even though he is not running more fever, I will go ahead and add vancomycin to his regimen and see if this will help. I appreciate help from Dr. Rees. cc: MD Yandel Nazario Jr, MD
[2019-03-19] MEDS ORDERED: VANCOMYCIN 1 GM/NS 1 GM/250 ML IVPB IV SCH (11:30)
[2019-03-19 16:16] LABS: ALLEN TEST NO; BE 3.9 mmoll (-3.0-3.0); BLOOD TYPE ARTERIAL; METHB 1.1 % (0.0-1.5); O2(CT) 13.7 mL/dL (15.0-23.0); O2HB 96.3 % (95.0-99.0); PCO2(98.6) 37 mmHg (35-45); PO2(98.6) 110 mmHg (60-100); SAMPLE BLOOD; SAO2 98.6 % (95.0-100.0); pH(98.6) 7.48 (7.35-7.45)
[2019-03-19 16:17] LABS: MODALITY BI PAP
[2019-03-19] MEDS ORDERED: ATIVAN IV ONE (16:56)
[2019-03-19] MEDS: ASPIRIN EC PO SCH (17:34)
[2019-03-19] MEDS: CALTRATE 600 PO SCH ×3 (17:35→23:16)
[2019-03-19] MEDS: PREDNISONE PO SCH (17:37)
[2019-03-19] MEDS: TOPROL XL PO SCH (17:37)
[2019-03-19] MEDS: NEPHRO-VITE PO SCH (17:38)
[2019-03-19] MEDS: FLOMAX PO SCH (17:39)
[2019-03-19] MEDS: IMDUR PO SCH (17:41)
[2019-03-19] MEDS: EFFEXOR XR PO SCH (17:41)
[2019-03-19] MEDS: MYSOLINE PO SCH ×2 (17:41→23:17)
--- NOTE | 2019-03-19 19:51 | NEPHROLOGY PROGRESS NOTE ---
DATE: 03/19/2019 Subjective: patient lying in bed awake with incoherent speech to himself, grabbing at his covers and unable to tell me what he is here for. Objective: vitals. Temperature 98.4 pulse 69, respirations 18, blood pressure 126/39, 02 sat 93% on 4L NC. General: chronically ill appearing white male lying in bed and no acute distress. HEENT: a traumatic, normocephalic. Pupils equal and reactive to light. Trachea midline. Mucous membranes dry Skin: warm dry and intact. Neck: supple, 6cm JVD appreciated. Cardiovascular: S1 S2 regular rate and rhythm with a systolic murmur. Respiratory: crackles diffusely to bilateral lobes. Abdomen: soft, nontender and nondistended. Bowel sounds present. : not inspected Extremities: chronic ankle edema noted to bilateral lower extremities Neurological: alert, oriented to person. incoherent speech. Labs: WBC 10.48, hemoglobin 8.8, hematocrit 27.6, platelet count 113, sodium 137, potassium 3.3, chloride 101, carbon dioxide 21, anion gap 15,BUN 43, creatinine 5.1, calcium 9.1, intake 70 output 0 Impression: Chronic kidney disease stage 5D. He will get his routine hemodialysis today. Continue current plan. Electrolytes and acid base balance. In target. Anemia. Low but stable. Does not meet transfusion criteria. Blood pressure. In target. Hospital delirium. Multifactorial, will consult with team. Respiratory failure. I discussed the case with his , brother, Dr. Morton, and Dr. Rees. Started BIPAP. expresses that he has been functionally declining and has felt for some time that he was getting worse. She agrees that vent support and cardiac resuscitation would not meaningfully improve the quality or length of his life and that in any event he would not accept these interventions if he was able to speak for himself. We will not escalate his level of care beyond BIPAP. DNR I. cc: MD Yandel Mims MD [facility]TD[facility]
[2019-03-19] MEDS: ROCEPHIN 1 GM in NS 50 ML IV SCH (20:28)
[2019-03-19] MEDS: LEVAQUIN 250 MG/D5W 250 MG/50 ML IVPB IV SCH (20:28)
[2019-03-19] MEDS: PROTONIX PO SCH (23:17)
[2019-03-19] MEDS: PRAVACHOL PO SCH (23:17)
[2019-03-20] MEDS: DUONEB (A & A) INH SCH ×4 (03:54→22:34)
--- NOTE | 2019-03-20 05:29 | PULMONOLOGY PROGRESS NOTE ---
DATE: 03/19/2019 INTERIM HISTORY: The patient has had ongoing decline over the last 12 to 16 hours. He has become progressively agitated. End of life discussions have been held with the family by Dr. Woodard. Family does not wish to pursue aggressive intervention such as mechanical ventilation or advanced cardiac life support. His resuscitation status has been appropriately addressed. OBJECTIVE: Vital Signs: The patient is agitated. He is afebrile. His oxygen requirements have continued to increase. Blood pressure 107/78, heart rate 86, respiratory rate 24, and oxygen saturation 92 percent. HEENT: Pupils are equal and reactive. Oropharynx appears clear. Neck: Supple. Lungs: Chest reveals diffuse crackles bilaterally. Cardiac: S1-S2. Abdomen: Soft. Extremities: Without edema. LABORATORIES: Arterial blood gas on BiPAP reveals a pH 7.48, pCO2 of 37, and PO2 of 110. Chest x- ray reveals diffuse bilateral infiltrates. IMPRESSION: 1. An 84-year-old with diffuse bilateral pneumonia. 2. End-stage renal disease. 3. Progressive hypoxemic respiratory failure. 4. Progressive cognitive decline. DISCUSSION: An 84-year-old with problems outlined above. He continues to decline. Barium swallow could not be performed due to worsening mental status. His overall prognosis is extremely poor. RECOMMENDATIONS: 1. Continue antibiotic regimen. 2. Continue oxygen and BiPAP for comfort. 3. Continue palliative measures. 4. Prognosis is poor. cc: MD Yandel Barfield MD
[2019-03-20] MEDS: HUMULIN R SUBQ SCH ×4 (06:13→21:12)
[2019-03-20 06:19] LABS: BASO# 0.01 X1000 (0.0-0.2); BASO% 0.1 % (0.0-0.8); EOS# 0.02 X1000 (0.0-0.7); EOS% 0.2 % (0.0-10.0); HEMATOCRIT 30.4 % (42.0-52.0); HEMOGLOBIN 9.3 g/dL (14.0-18.0); IMM GRAN# 0.07 X1000 (0.0-0.04); IMM GRAN% 0.7 % (0.0-0.5); LYMPH# 0.73 X1000 (1.2-3.4); LYMPH% 7.4 % (20.5-51.1); MCH 30.9 PG (27-31); MCHC 30.6 g/dL (33-37); MONO# 0.73 X1000 (0.11-0.59); MONO% 7.4 % (1.7-9.3); MPV 9.3 FL (7.4-10.4); NEUT# 8.27 X1000 (1.4-6.5); NEUT% 84.2 % (42.2-75.2); PLT 96 X1000 (130-400); RBC 3.01 XMIL (4.7-6.1); WBC 9.83 X1000 (4.8-10.8)
--- NOTE | 2019-03-20 06:25 | Diag Imaging Result Doc PS360 ---
EXAM: CHEST-PORTABLE HISTORY: pneumonia TECHNIQUE: Chest single view COMPARISON: 03/19/2019 FINDINGS: There are dense bilateral infiltrates. These are more prominent than on the prior study. Small pleural effusions. IMPRESSION: Interval worsening Electronically signed by Feliz Hawley 03/20/2019 6:23 AM
[2019-03-20 06:37] LABS: CALCIUM 8.6 mg/dL (8.8-10.2); CREATININE 3.4 mg/dL (0.7-1.2); POTASSIUM 4.2 mmol/L (3.5-5.1)
[2019-03-20] MEDS ORDERED: ATIVAN IV PRN (09:17)
[2019-03-20] MEDS: ASPIRIN EC PO SCH (10:01)
[2019-03-20] MEDS: FLOMAX PO SCH (10:02)
[2019-03-20] MEDS: IMDUR PO SCH (10:02)
[2019-03-20] MEDS: CALTRATE 600 PO SCH ×2 (10:02→21:11)
[2019-03-20] MEDS: EFFEXOR XR PO SCH (10:02)
[2019-03-20] MEDS: MYSOLINE PO SCH ×2 (10:02→21:11)
[2019-03-20] MEDS: NEPHRO-VITE PO SCH (10:03)
[2019-03-20] MEDS: PREDNISONE PO SCH (10:03)
[2019-03-20] MEDS: TOPROL XL PO SCH (10:04)
--- NOTE | 2019-03-20 10:16 | PROGRESS NOTE ---
DATE: 03/20/2019 SUBJECTIVE: The patient is not talking at this time. He is shaking a little bit, a little delirious. He is on BiPAP. He has been made a no code level 1. His has been at bedside and we talked for a long time about his condition. He has had pneumonia that has not been very responsive to antibiotics. Chest x-ray today shows small pleural effusions, dense bilateral infiltrates more prominent than on previous study. He is on several antibiotics. He is on dialysis. Both Pulmonology and Nephrology are seeing him. The family has decided not to put him on a ventilator or have advanced cardiac life support. We are going to try to keep him comfortable and see if he does respond to the antibiotics but so far it does not seem like he is responding. We had planned a barium swallow but because of his mental status could not get this done. Blood gas shows a pCO2 of 37, pO2 of 110, and a pH of 7.48. OBJECTIVE: Vital signs: Blood pressure 122/41, respirations 18, pulse 62, temperature 97.6 degrees Fahrenheit. HEENT: He is normocephalic. EOMS intact. PERRLA. Throat clear. Lungs: Have scattered rales and rhonchi. Heart: Regular rate and rhythm without murmurs, gallops, friction rubs. Abdomen: Soft with active bowel sounds. No organomegaly or tenderness. The patient is just not responsive at this time neurologically. ASSESSMENT: 1. Respiratory arrest. 2. End-stage kidney disease. 3. Pneumonia. PLAN: We will try to support, continue IV antibiotics at this time. Prognosis poor. cc: MD Yandel Nazario Jr, MD
[2019-03-20] MEDS ORDERED: MORPHINE IV PRN (11:38)
[2019-03-20] MEDS: MORPHINE IV PRN ×2 (12:27→23:44)
--- NOTE | 2019-03-20 13:29 | NEPHROLOGY PROGRESS NOTE ---
DATE: 03/20/2019 SUBJECTIVE: He is unresponsive on BiPAP. OBJECTIVE: Vital Signs: Blood pressure 122/41, heart rate 62, respirations 18, afebrile. General: Again, poorly responsive. Skin: Warm and dry. Conjunctivae are pink. Neck: Neck veins are not appreciated. Heart: Irregular and tachycardic. Lungs: Equal, without crackles throughout. Abdomen: Benign. Decreased bowel sounds. Extremities: No edema. IMPRESSION: 1. Chronic kidney disease, 5D. His next planned dialysis treatment will be tomorrow. 2. Pneumonia, with respiratory failure. His x-ray and clinical status continue to worsen. I had another conversation with his today. As of now, she would like to continue the BiPAP. Likely terminal. cc: MD Yandel Mims MD
[2019-03-20] MEDS: ATIVAN IV PRN ×2 (14:17→19:54)
[2019-03-20] MEDS: ROCEPHIN 1 GM in NS 50 ML IV SCH (19:53)
[2019-03-20] MEDS ORDERED: ZOSYN 3.375 GM in NS 50 ML IV ONE (19:53)
[2019-03-20] MEDS: PROTONIX PO SCH (21:12)
[2019-03-20] MEDS: PRAVACHOL PO SCH (21:12)
--- NOTE | 2019-03-20 22:26 | PULMONOLOGY PROGRESS NOTE ---
DATE: 03/20/2019 SUBJECTIVE: The patient has been transitioned to a nonrebreather mask. He appears much more comfortable. Swallowing study could not be performed today with poor mental status. OBJECTIVE: Vital Signs: The patient has been afebrile for the last 24 hours. Blood pressure 106/47, heart rate 70, respiratory rate 16, oxygen saturation 100% on nonrebreather mask. HEENT: Pupils are equal and reactive. Oropharynx appears clear but difficult to evaluate. Neck: Supple. Chest: Reveals scattered rhonchi. Cardiac exam: S1, S2. Abdomen: Soft. Extremities: Reveal edema. LABORATORIES: Chest x-ray reveals dense bilateral infiltrates with some worsening from prior exam. IMPRESSION: An 84-year-old with altered mental status, end-stage renal disease, progressive hypoxemic respiratory failure with progressive pulmonary infiltrates. The patient has received good antibiotic coverage during this hospitalization. I will expand gram-negative coverage, but I suspect that this is related to an aspiration pneumonitis, which is primarily chemical. If he clinically improves, then a swallowing study will be performed. PLAN: 1. Broaden antibiotic coverage. 2. Continue oxygen. 3. Continue comfort measures. 4. I agree with Dr. Woodard. He does appear terminal but hopefully will improve. cc: MD Yandel Barfield MD
[2019-03-21] MEDS: ATIVAN IV PRN ×3 (02:14→19:46)
[2019-03-21] MEDS: DUONEB (A & A) INH SCH ×4 (03:41→22:42)
[2019-03-21] MEDS: ZOSYN 2.25 GM in NS 50 ML IV SCH ×3 (04:37→17:52)
[2019-03-21] MEDS: HUMULIN R SUBQ SCH ×4 (06:16→22:51)
--- NOTE | 2019-03-21 07:12 | Diag Imaging Result Doc PS360 ---
EXAM: CHEST-PORTABLE HISTORY: pneumonia TECHNIQUE: Single view COMPARISON: 03/20/2019 FINDINGS: Poor inspiratory effort. There are dense bilateral infiltrates. These are more pronounced than on the prior study. There are small pleural effusions. IMPRESSION: Interval worsening. Electronically signed by Feliz Hawley 03/21/2019 7:09 AM
[2019-03-21 07:27] LABS: BASO# 0.02 X1000 (0.0-0.2); BASO% 0.2 % (0.0-0.8); EOS% 2.8 % (0.0-10.0); HEMATOCRIT 30.6 % (42.0-52.0); HEMOGLOBIN 9.2 g/dL (14.0-18.0); IMM GRAN# 0.11 X1000 (0.0-0.04); LYMPH# 0.91 X1000 (1.2-3.4); LYMPH% 8.6 % (20.5-51.1); MCH 30.7 PG (27-31); MCHC 30.1 g/dL (33-37); MONO# 0.68 X1000 (0.11-0.59); MONO% 6.4 % (1.7-9.3); MPV 9.5 FL (7.4-10.4); NEUT# 8.57 X1000 (1.4-6.5); PLT 89 X1000 (130-400); RDW 15.1 % (11.5-14.5); WBC 10.59 X1000 (4.8-10.8)
[2019-03-21 08:04] LABS: CALCIUM 8.4 mg/dL (8.8-10.2); CREATININE 4.7 mg/dL (0.7-1.2); POTASSIUM 4.3 mmol/L (3.5-5.1)
[2019-03-21] MEDS: PREDNISONE PO SCH (08:17)
[2019-03-21] MEDS: ASPIRIN EC PO SCH (08:17)
[2019-03-21] MEDS: TOPROL XL PO SCH (08:17)
[2019-03-21] MEDS: IMDUR PO SCH (08:18)
[2019-03-21] MEDS: EFFEXOR XR PO SCH (08:18)
[2019-03-21] MEDS: NEPHRO-VITE PO SCH (08:18)
[2019-03-21] MEDS: MYSOLINE PO SCH ×2 (08:18→22:52)
[2019-03-21] MEDS: CALTRATE 600 PO SCH ×2 (08:18→22:51)
[2019-03-21] MEDS: FLOMAX PO SCH (08:19)
[2019-03-21] MEDS ORDERED: NS 2,000 ML MISC PRN (10:43)
[2019-03-21] MEDS ORDERED: TIGHT: 0.2 ML/HR FOR DIALYSIS MISC PRN (10:43)
--- NOTE | 2019-03-21 12:02 | NEPHROLOGY PROGRESS NOTE ---
DATE: 03/21/2019 SUBJECTIVE: He is on 100% closed face mask. He is much more comfortable than he apparently was with the BiPAP. Otherwise, no new complaints and he has not eaten or drunk anything. OBJECTIVE: Vital Signs: Blood pressure 124/62, heart rate 74, respirations 20, and afebrile. No acute distress. Skin: Warm and dry. Heart: Regular. Lungs: Equal with crackles. Shallow. Abdomen: Benign. Extremities: Minimal edema. IMPRESSION: Chronic kidney disease 5D. He will have his routine hemodialysis today. Limited ultrafiltration based on his blood pressure. Electrolytes/acid base in target. Hemoglobin is below target but stable. Continue current antibiotics. cc: MD Yandel Mims MD
--- NOTE | 2019-03-21 13:05 | PROGRESS NOTE ---
DATE: 03/21/2019 SUBJECTIVE: The patient is not talking at this time. He does arouse but will not communicate. OBJECTIVE: Chest x-ray shows interval worsening of the bilateral infiltrates. Vital Signs: Blood pressure is 124/62, respirations 12, pulse 74, and temperature 97.4 degrees Fahrenheit. HEENT: Normocephalic. EOMs intact. PERRLA. Throat is clear. Respiratory: Lungs have scattered rales. Heart: Regular rate and rhythm. Abdomen: Soft. Active bowel sounds. Neurological: The patient is awake but not responsive. ASSESSMENT: 1. Worsening pneumonia. 2. Renal failure on dialysis. Dr. Woodard wants to continue with dialysis at this point. Laboratory work shows a white count of 10,590 and creatinine of 4.7. PLAN: Continue care. cc: MD Yandel Nazario Jr, MD
[2019-03-21] MEDS: MORPHINE IV PRN ×3 (13:18→23:13)
[2019-03-21] MEDS ORDERED: VANCOMYCIN 1 GM/NS 1 GM/250 ML IVPB IV ONE (17:00)
--- NOTE | 2019-03-21 18:29 | PULMONOLOGY PROGRESS NOTE ---
DATE: 03/21/2019 SUBJECTIVE: The patient remains obtunded and agitated. He appears to be comfortable but fidgety on non-rebreather. OBJECTIVE: Vital Signs: Blood pressure 128/32, heart rate 80, respiratory rate 15, oxygen saturation 92%. HEENT: Pupils are equal and reactive. Oropharynx appears clear. Neck: Supple. Chest: Reveals coarse rhonchi bilaterally. Cardiac exam: S1-S2. Abdomen: Soft. Extremities: Without edema. LABORATORIES: Chest x-ray reveals diffuse bilateral infiltrates without improvement. IMPRESSION: An 84-year-old with: 1. Diffuse bilateral pneumonia. 2. Hypoxemic respiratory failure. 3. End-stage renal disease. 4. Encephalopathy. PLAN: 1. Continue current antibiotic regimen. 2. Continue oxygen modality. 3. Continue comfort measures. 4. Consider swallowing study if he has clinical improvement, although currently he appears terminal. cc: MD Yandel Barfield MD
[2019-03-21] MEDS: LEVAQUIN 250 MG/D5W 250 MG/50 ML IVPB IV SCH (19:51)
[2019-03-21] MEDS: PRAVACHOL PO SCH (22:52)
[2019-03-21] MEDS: PROTONIX PO SCH (22:52)
[2019-03-22] MEDS: ZOSYN 2.25 GM in NS 50 ML IV SCH ×5 (00:10→23:04)
[2019-03-22] MEDS: DUONEB (A & A) INH SCH ×4 (03:20→21:13)
[2019-03-22] MEDS: HUMULIN R SUBQ SCH ×3 (06:13→17:39)
[2019-03-22 06:16] LABS: BASO# 0.02 X1000 (0.0-0.2); BASO% 0.2 % (0.0-0.8); HEMATOCRIT 30.5 % (42.0-52.0); HEMOGLOBIN 9.2 g/dL (14.0-18.0); IMM GRAN# 0.08 X1000 (0.0-0.04); IMM GRAN% 0.8 % (0.0-0.5); LYMPH# 0.85 X1000 (1.2-3.4); LYMPH% 8.3 % (20.5-51.1); MCH 30.8 PG (27-31); MCHC 30.2 g/dL (33-37); MONO# 0.72 X1000 (0.11-0.59); MONO% 7.1 % (1.7-9.3); MPV 9.7 FL (7.4-10.4); NEUT# 8.44 X1000 (1.4-6.5); NEUT% 82.6 % (42.2-75.2); PLT 74 X1000 (130-400); RBC 2.99 XMIL (4.7-6.1); RDW 15.1 % (11.5-14.5); WBC 10.21 X1000 (4.8-10.8)
[2019-03-22 06:29] LABS: CALCIUM 8.5 mg/dL (8.8-10.2); CREATININE 3.4 mg/dL (0.7-1.2); POTASSIUM 4.2 mmol/L (3.5-5.1)
[2019-03-22] MEDS: ASPIRIN EC PO SCH (08:39)
[2019-03-22] MEDS: CALTRATE 600 PO SCH (08:39)
[2019-03-22] MEDS: EFFEXOR XR PO SCH (08:40)
[2019-03-22] MEDS: TOPROL XL PO SCH (08:40)
[2019-03-22] MEDS: FLOMAX PO SCH (08:40)
[2019-03-22] MEDS: NEPHRO-VITE PO SCH (08:40)
[2019-03-22] MEDS: IMDUR PO SCH (08:40)
[2019-03-22] MEDS: PREDNISONE PO SCH (08:41)
[2019-03-22] MEDS: MYSOLINE PO SCH (08:41)
[2019-03-22] MEDS: MORPHINE IV PRN ×2 (11:45→17:48)
--- NOTE | 2019-03-22 13:37 | PROGRESS NOTE ---
DATE: 03/22/2019 SUBJECTIVE: The patient wakes up occasionally but is not otherwise responsive. is by bedside and several other either family members or friends. OBJECTIVE: Blood pressure is 111/40, respirations 12, pulse 82, temperature 97.6 degrees Fahrenheit. Oxygen saturation was 100% on oxygen.HEENT: He is normocephalic. Neck: Supple. Lungs: Have rales anteriorly. Heart: Regular rate and rhythm without murmurs, gallops, friction rubs. Abdomen: Soft. Active bowel sounds. No organomegaly or tenderness. Neurological: The patient is lethargic. LABORATORY: White count is down a little bit 10,210, hemoglobin 9.2, hematocrit 30.7. Creatinine is 3.4, electrolytes essentially normal. ASSESSMENT: 1. Pneumonia. 2. Hypoxia. 3. End-stage renal disease. PLAN: Continue support. cc: MD Yandel Nazario Jr, MD
--- NOTE | 2019-03-22 19:01 | PULMONOLOGY PROGRESS NOTE ---
DATE: 03/22/2019 SUBJECTIVE: The patient is somnolent. His reports he has been resting well. OBJECTIVE: Vital Signs: The patient has been afebrile for the 24 hours. Blood pressure 111/40, heart rate 76, respiratory rate 16, oxygen saturation 100% on non-rebreather. HEENT: Pupils are equal, reactive. Oropharynx is clear. Neck: Supple. Chest: Wet rhonchi bilaterally. Cardiac: S1, S2 . Abdomen: Soft. Extremities: Without edema. LABORATORIES: White blood count 10.21, hemoglobin 9.2, platelet count 74,000, sodium 144, potassium 4.2, chloride 104, bicarbonate 26, BUN 27, creatinine 3.4. IMPRESSION: 84-year-old with 1. Diffuse pneumonia. 2. Hypoxemic respiratory failure. 3. End-stage renal disease. 4. Encephalopathy. PLAN: 1. Continue comfort measures . 2. Continue oxygen therapy. 3. Continue current antibiotic regimen. 4. Followup chest x-ray tomorrow. If he shows radiographic improvement will consider repeating swallowing study. cc: MD Yandel Barfield MD
[2019-03-23] MEDS: ATIVAN IV PRN ×3 (00:24→17:27)
[2019-03-23] MEDS: MYSOLINE PO SCH ×3 (00:26→22:26)
[2019-03-23] MEDS: PRAVACHOL PO SCH ×2 (00:26→22:24)
[2019-03-23] MEDS: HUMULIN R SUBQ SCH ×5 (00:26→22:25)
[2019-03-23] MEDS: PROTONIX PO SCH ×2 (00:27→22:25)
[2019-03-23] MEDS: CALTRATE 600 PO SCH ×3 (00:27→22:24)
[2019-03-23] MEDS: DUONEB (A & A) INH SCH ×4 (03:25→23:04)
[2019-03-23] MEDS: ZOSYN 2.25 GM in NS 50 ML IV SCH ×3 (05:43→19:59)
[2019-03-23 06:00] LABS: BASO# 0.04 X1000 (0.0-0.2); BASO% 0.3 % (0.0-0.8); EOS# 0.37 X1000 (0.0-0.7); EOS% 3.1 % (0.0-10.0); HEMATOCRIT 30.6 % (42.0-52.0); HEMOGLOBIN 9.3 g/dL (14.0-18.0); IMM GRAN# 0.14 X1000 (0.0-0.04); IMM GRAN% 1.2 % (0.0-0.5); LYMPH# 1.01 X1000 (1.2-3.4); LYMPH% 8.6 % (20.5-51.1); MCH 31.1 PG (27-31); MCHC 30.4 g/dL (33-37); MCV 102.3 FL (81-99); MONO# 0.75 X1000 (0.11-0.59); MONO% 6.4 % (1.7-9.3); MPV 9.5 FL (7.4-10.4); NEUT# 9.44 X1000 (1.4-6.5); NEUT% 80.4 % (42.2-75.2); PLT 54 X1000 (130-400); RBC 2.99 XMIL (4.7-6.1); RDW 15.3 % (11.5-14.5); WBC 11.75 X1000 (4.8-10.8)
[2019-03-23 06:31] LABS: CALCIUM 8.1 mg/dL (8.8-10.2); CREATININE 4.6 mg/dL (0.7-1.2); POTASSIUM 4.2 mmol/L (3.5-5.1)
--- NOTE | 2019-03-23 07:04 | Diag Imaging Result Doc PS360 ---
CHEST-PORTABLE - 03/23/2019 INDICATION: pneumonia COMPARISON: 03/21/2019 FINDINGS: There is slight worsening in the dense bilateral infiltrates/opacities. There is a stable small right pleural effusion. IMPRESSION: Worsening in the extensive bilateral infiltrates/opacities. Electronically signed by Carlos Alberto Whelan 03/23/2019 7:02 AM
[2019-03-23] MEDS ORDERED: NS 500 ML IV ONE ×2 (07:41→11:12)
--- NOTE | 2019-03-23 09:38 | NEPHROLOGY PROGRESS NOTE ---
DATE: 03/23/2019 Subjective: patient lying in bed with at bedside. He will withdraw his bilateral upper extremities to tactile stimuli, but will not open his eyes or speak. Objective: vitals. Temperature 98.5, pulse 88, respirations 20, blood pressure 123/39, O2 sat 98% on 100% nonrebreather. General: chronically ill appearing white male lying in bed and no acute distress. HEENT: a traumatic, normocephalic. Pupils equal and reactive to light. Trachea midline. Mucous membranes dry Skin: warm dry and intact. Neck: supple, no JVD Cardiovascular: S1 S2 regular rate and rhythm, no murmurs or gallops. Respiratory: crackles diffusely to bilateral lobes. Abdomen: soft, nontender and nondistended.Hypoactive bowel sounds. : not inspected Extremities: no clubbing, cyanosis, or edema. Neurological: somnolent, not able to open his eyes or follow commands Labs: WBC 11.75, hemoglobin 9.3, hematocrit 30.6, platelet count 54, sodium 141, potassium 4.2, chloride 102, carbon dioxide 24, anion gap 15, BUN 43, creatinine 4.6, calcium 8.1. Intake 100, output zero. Impression: Chronic kidney disease stage 5D. Will receive his routine dialysis tomorrow, continue current treatment. Electrolytes and acid base balance. In target. Anemia. Low but stable. Does not meet transfusion criteria. Blood pressure. Below target. We will give NS 500ml bolus x 2 as needed. cc: MD Yandel Mims MD MTDD
--- NOTE | 2019-03-23 09:40 | PROGRESS NOTE ---
DATE: 03/23/2019 SUBJECTIVE: The patient is not very responsive. He will open his eyes, but he will not talk. His is sitting by the bedside. OBJECTIVE: Vital Signs: Blood pressures dropped from 123/39 earlier today to 77/17, temperature is 98.5 degrees Fahrenheit. HEENT: Normocephalic. Lungs: Scattered rales and rhonchi. Heart: Regular rate and rhythm. No murmurs, gallops, friction rubs. Abdomen: Soft. Active bowel sounds. No organomegaly or tenderness. IMAGING AND LABORATORY DATA: White count is up to 11,750, hemoglobin 9.3. Creatinine is 4.6, BUN 43. My understanding is that Dr. Woodard has ordered some IV fluids on him. I think he is a little dry and dehydrated. He is on vancomycin and Zosyn. Chest x-ray shows worsening of the bilateral pneumonia. ASSESSMENT: 1. Pneumonia, not responding. 2. Renal failure. PLAN: Continue comfort measures and antibiotics. The patient now has hypotension. If that continues, he may be terminal. cc: MD Yandel Nazario Jr, MD
[2019-03-23] MEDS: ASPIRIN EC PO SCH (09:42)
[2019-03-23] MEDS: EFFEXOR XR PO SCH (09:43)
[2019-03-23] MEDS: FLOMAX PO SCH (09:44)
[2019-03-23] MEDS: IMDUR PO SCH (09:44)
[2019-03-23] MEDS: TOPROL XL PO SCH (09:45)
[2019-03-23] MEDS: NEPHRO-VITE PO SCH (09:45)
[2019-03-23] MEDS: PREDNISONE PO SCH (09:45)
[2019-03-23] MEDS: LEVAQUIN 250 MG/D5W 250 MG/50 ML IVPB IV SCH (21:18)
--- NOTE | 2019-03-23 22:57 | PULMONOLOGY PROGRESS NOTE ---
DATE: 03/23/2019 SUBJECTIVE: The patient is obtunded with periodic agitation. He has no increased work of breathing. OBJECTIVE: Vital Signs: Blood pressure 92/58, heart rate 89, respiratory rate 16, oxygen saturation 99% on non-rebreather. HEENT: Pupils are equal. Oropharynx appears clear. Neck: Supple. Chest: Reveals faint crackles bilaterally. Cardiac exam: S1, S2. Abdomen: Soft. Extremities: Without edema. LABORATORIES: Chest x-ray reveals diffuse bilateral infiltrates without improvement. White blood count 11.8, hemoglobin 9.3, platelet count 54,000. IMPRESSION: An 84-year-old with: 1. Diffuse bilateral pneumonia. 2. Hypoxemic respiratory failure. 3. Encephalopathy. 4. End-stage renal disease on hemodialysis. He has had no clinical improvement or radiographic improvement over the last week. PLAN: 1. Continue comfort measures. 2. Continue antibiotic regimen. 3. Continue oxygen for hypoxemic respiratory failure. 4. End of life discussions have been held with the family. He does not appear to be clinically improving. cc: MD Yandel Barfield MD
[2019-03-24] MEDS: ZOSYN 2.25 GM in NS 50 ML IV SCH ×2 (00:35→06:47)
[2019-03-24] MEDS: DUONEB (A & A) INH SCH ×4 (06:21→21:53)
[2019-03-24] MEDS: HUMULIN R SUBQ SCH (06:41)
--- NOTE | 2019-03-24 09:44 | PROGRESS NOTE ---
DATE: 03/24/2019 SUBJECTIVE: The patient is not responsive. and brother at the bedside. has already decided not to do any more dialysis. I had a long talk with her about just doing comfort measures and she agrees. She wants his antibiotics stopped; will stop his IV fluids. Give him a saline lock, and give him pain medication as needed to make him comfortable. OBJECTIVE: Vital Signs: Blood pressure is 109/31, respirations 18, pulse 88, temperature 97.4 degrees Fahrenheit. HEENT: Normocephalic. EOMS intact. PERRLA. Throat clear. Lungs: Have coarse rhonchi and rales scattered throughout. Heart: Regular rate and rhythm without murmurs, gallops, friction rubs. Abdomen: Soft. Active bowel sounds. No organomegaly or tenderness. Neurological exam: The patient is not responsive at this time. ASSESSMENT: 1. Refractory pneumonia. 2. Renal failure. PLAN: Comfort measures. cc: MD Yandel Nazario Jr, MD
[2019-03-24] MEDS: ATROPINE 1 % OPHTH SOLN SL PRN ×2 (10:53→16:18)
--- NOTE | 2019-03-24 10:57 | NEPHROLOGY PROGRESS NOTE ---
DATE: 03/24/2019 Subjective: patient lying in bed with at bedside. He does not respond to verbal or tactile stimuli. Objective: vitals. Temperature 97.4, pulse 88, respirations 18, blood pressure 109/31, 02 sat 98% on 100% nonrebreather. General: chronically ill appearing white male lying in bed in no acute distress. HEENT: atraumatic, normocephalic. Pupils equal and reactive to light. Trachea midline. Mucous membranes dry Skin: warm dry and intact. Neck: supple, no JVD Cardiovascular: S1 S2 regular rate and rhythm, no murmurs or gallops. Respiratory: crackles diffusely to bilateral lobes. Abdomen: soft, nontender and nondistended.Hypoactive bowel sounds. : not inspected Extremities: no clubbing, cyanosis, or edema. Neurological: not able to open his eyes or follow commands Labs: Impression: Chronic kidney disease stage 5D. After talking with his , we have decided due to his condition and hypotension we will forfeit dialysis today. Palliative care consult today. Electrolytes and acid base balance. In target. Anemia. Low but stable. Does not meet transfusion criteria. Blood pressure. Low but stable. cc: MD Yandel Mims MD MTDD
[2019-03-24] MEDS: ATIVAN IV PRN (13:20)
[2019-03-24] MEDS: IMDUR PO SCH (15:44)
[2019-03-24] MEDS: MORPHINE IV PRN (16:18)
[2019-03-25 03:16] VITALS: BP 66/25
[2019-03-25] MEDS: DUONEB (A & A) INH SCH (03:31)
[2019-03-25] MEDS: ATROPINE 1 % OPHTH SOLN SL PRN (05:54)
--- NOTE | 2019-03-25 09:27 | DISCHARGE SUMMARY ---
ADMISSION DATE: 03/14/2019 DISCHARGE DATE: 03/25/2019 NOTE I entered the room at 0735 at which the patient was pulseless, apneic, unresponsive. Declared at 0735. was at the bedside. He is not an organ donor. cc: MD Yandel Mims MD
--- NOTE | 2019-03-25 09:41 | DISCHARGE SUMMARY ---
ADMISSION DATE: 03/14/2019 DISCHARGE DATE: 03/25/2019 FINAL DIAGNOSES: 1. Respiratory arrest. 2. Pneumonia, bacterial, community-acquired. 3. End-stage renal disease. 4. Adult onset diabetes mellitus. 5. Hyperlipidemia. 6. Essential tremor. 7. Acid reflux. 8. Benign prostatic hypertrophy. 9. Depression on Prozac and Effexor. 10. Patient has also had intermittent benign postural vertigo and takes meclizine as needed. 11. Altered mental status. HOSPITAL COURSE: The patient came in on the 14 of March with cough and altered mental status. He had dialysis, but was not getting any better and was sent to the hospital. The patient had bilateral infiltrates, worse in the left upper lobe. The patient was placed on IV antibiotics, but failed to get better. Pulmonary consult was obtained and because he is on dialysis Nephrology was consulted. The patient continued to get worse and just did not respond to care. It finally came to the point where family decided just to do comfort measures. He had been in poor health and had been on dialysis recently. He became hypoxic and was placed on BiPAP. Family did not want him on a ventilator. Finally changed that just to nasal cannula because he was fighting the BiPAP. Decided not to do dialysis the last time because he just did not feel up to it and then he became unresponsive. He was declared at 7:35 a.m. on 03/25/2019 from respiratory arrest and underlying pneumonia. I did speak with the and some other family members. Dr. Woodard actually saw him and pronounced him at 7:35 a.m. and then I saw him shortly after that. cc: MD Yandel Nazario Jr, MD
== END 2019-03-25 07:35 | disposition expired | DRG 177 ==
LOC: ED 15:26 → 3N 17:56 → 1N 03-19 14:58
PROVIDERS: ADMIT Internal Medicine; ATTEND Emergency Medicine